=== PATIENT | female | born 1950 | race Caucasian/White ===

== ENCOUNTER 2021-06-30 12:26 | Inpatient (IN) | payer MEDICARE ==
--- NOTE | 2021-06-30 12:37 | ERPHSYRPT ---
- History of Present Illness Time Seen by Provider: 06/30/21 12:36 Source: patient Exam Limitations: no limitations Physician History: This is a 70-year-old white female patient who has paraplegia, peripheral neuropathy, diabetes, COPD, congestive heart failure and presents with several day history of worsening shortness of breath and cough. Patient usually seeks medical attention at [facility] in [facility]. However, she was unhappy with their care on 06/29/2021. She was found to have a moderate size right-sided pleural effusion and pulmonary infiltrates. She was sent home. Today, she has had worsening shortness of breath with a 92% oxygen saturation level on 2 L. Ambulance arrived and they were able to improve her saturation levels but needed to turn up her oxygen level to 4 L. Patient arrives via EMS. Timing/Duration: day(s) (Last couple days) Activities at Onset: none Severity of Dyspnea-Max: moderate Severity of Dyspnea-Current: moderate Possible Cause: occasional episodes Associated Symptoms: cough, weakness, No chest pain/discomfort Allergies/Adverse Reactions: latex Allergy (Verified 06/30/21 12:48) Home Medications: Duloxetine HCl [Cymbalta] 60 mg PO BID 08/17/16 [History] Gabapentin 800 mg PO QID 08/17/16 [History] Metformin HCl Xr 500 mg [Glucophage XR 500 MG] 500 mg PO BID 08/17/16 [History] Amitriptyline HCl 25 mg [Elavil 25 mg] 25 mg PO DAILY 06/30/21 [History] Diazepam 5 mg [Valium 5 MG] 5 mg PO DAILY 06/30/21 [History] Furosemide 20 mg [Lasix 20 mg] 40 mg PO DAILY 06/30/21 [History] Ipratropium/Albuterol Sulfate [Iprat-Albut 0.5-3(2.5) mg/3 ml] 3 ml IH Q4H 06/30/21 [History] Metoprolol Tartrate 25 mg [Lopressor 25MG Tab] 25 mg PO BID 06/30/21 [History] PANTOPRAZOLE 40 mg Tablet [Protonix 40MG Tablet] 40 mg PO QAM 06/30/21 [History] Hx Tetanus, Diphtheria Vaccination/Date Given: Yes Hx Influenza Vaccination/Date Given: No Hx Pneumococcal Vaccination/Date Given: No Travel Risk - International Travel Have you traveled outside of the country in past 3 weeks: No - Coronavirus Screening Are you exhibiting any of the following symptoms?: No Close contact with a COVID-19 positive Pt in past 14-21 Days: No - Review of Systems Constitutional: Weakness Eyes: No Symptoms Ears, Nose, & Throat: No Symptoms Respiratory: Cough, Dyspnea Cardiac: No Symptoms Abdominal/Gastrointestinal: No Symptoms Genitourinary Symptoms: No Symptoms Musculoskeletal: No Symptoms Skin: No Symptoms Neurological: No Symptoms Psychological: No Symptoms Endocrine: No Symptoms Hematologic/Lymphatic: No Symptoms Immunological/Allergic: No Symptoms All Other Systems: Reviewed and Negative - Past Medical History Pertinent Past Medical History: Yes Neurological History: Peripheral Neuropathy ENT History: No Pertinent History Cardiac History: High Cholesterol, Hypertension Respiratory History: Bronchitis Endocrine Medical History: Diabetes Type II Musculoskeletal History: No Pertinent History GI Medical History: No Pertinent History History: No Pertinent History Psycho-Social History: No Pertinent History Female Reproductive Disorders: No Pertinent History Other Medical History: 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 ostomy, bladder removal. pain pump d/t spine injury - Social History Smoking Status: Former smoker Exposure to second hand smoke: No Drug Use: none Patient Lives Alone: No - Nursing Vital Signs Nursing Vital Signs: Initial Vital Signs Temperature 95.3 F 06/30/21 12:31 Pulse Rate 99 H 06/30/21 12:31 Respiratory Rate 31 H 06/30/21 12:31 Blood Pressure 106/80 06/30/21 12:31 O2 Sat by Pulse Oximetry 99 06/30/21 12:31 Pain Scale Pain Intensity 6 - Physical Exam General Appearance: mild distress, alert, anxiety Eye Exam: PERRL/EOMI, eyes nml inspection Ears, Nose, Throat Exam: hearing grossly normal Neck Exam: normal inspection, non-tender, supple, full range of motion Respiratory Exam: respiratory distress, diminished breath sounds Cardiovascular/Chest Exam: normal heart sounds, regular rate/rhythm, normal peripheral pulses Abdominal/Gastrointestinal Exam: soft, normal bowel sounds, No tenderness Rectal Exam: not done Extremity Exam: pelvis stable, pedal edema Neurologic Exam: alert, oriented x 3, cooperative, oral and maxillofacial surgery resident II-XII nml as tested Skin Exam: normal color, warm, dry Lymphatic Exam: No adenopathy SpO2 Interpretation: normal O2 Delivery: Nasal Cannula - Course Nursing assessment & vital signs reviewed: Yes EKG Interpreted by Me: RATE (96), Sinus Rhythm, Left Gregory Deviation, NORMAL INTERVALS, NORMAL QRS, NORMAL ST-T, Other (There are no acute ischemic changes on today's EKG. There are no changes in today's EKG when compared to EKG dated 08/18/2016.) Ordered Tests: Active Orders 24 hr Category Date Time Status Principal Cloud Architect STAT Care 06/30/21 12:38 Active EKG-ER Only STAT Care 06/30/21 12:37 Active IV Insertion STAT Care 06/30/21 12:37 Active Pulse Oximetry (ED) STAT Care 06/30/21 12:37 Active CHEST 1 VIEW (PORTABLE) Stat Exams 06/30/21 12:59 Taken ARTERIAL BLOOD GASES Stat Lab 06/30/21 13:00 Completed BLOOD CULTURE Stat Lab 06/30/21 13:00 Received CBC W DIFF Stat Lab 06/30/21 12:55 Completed CMP Stat Lab 06/30/21 12:55 Completed INFLUENZA A+B EMELIA Stat Lab 06/30/21 12:55 Completed Lactic Acid Stat Lab 06/30/21 13:00 Completed MAGNESIUM Stat Lab 06/30/21 12:55 Completed NT PRO BNP Stat Lab 06/30/21 12:55 Completed TROPONIN Q3H Lab 06/30/21 12:55 Completed TROPONIN Q3H Lab 06/30/21 15:45 Received TROPONIN Q3H Lab 06/30/21 18:45 Ordered TROPONIN Q3H Lab 06/30/21 21:45 Ordered TROPONIN Q3H Lab 07/01/21 00:45 Ordered Transfer Order Routine Transfer 06/30/21 Ordered Lab/Rad Data: Laboratory Result Diagrams 06/30/21 12:55 06/30/21 12:55 Laboratory Results 06/30/21 06/30/21 06/30/21 Range/Units 13:00 12:55 12:55 WBC (4.0-10.5) K/mm3 RBC (4.1-5.4) M/mm3 Hgb (12.0-16.0) gm/dl Hct (35-47) % MCV (78-100) fl MCH (26-32) pg MCHC (32-36) g/dl RDW (11.5-14.0) % Plt Count (150-450) K/mm3 MPV (7.5-11.0) fl Gran % (36.0-66.0) % Eos # (Auto) (0-0.5) Absolute Lymphs (auto) (1.0-4.6) Absolute Monos (auto) (0.0-1.3) Lymphocytes % (24.0-44.0) % Monocytes % (0.0-12.0) % Eosinophils % (0.00-5.0) % Basophils % (0.0-0.4) % Absolute Granulocytes (1.4-6.9) Basophils # (0-0.4) Puncture Site LEFT BRACHIAL pCO2 67 H* (35-45) mmHg pO2 127 H* (75-100) mmHg Base Excess 8.8 H (-2.0-2.0) O2 Saturation 96.8 (94-100) g/dF ABG pH 7.35 (7.35-7.45) ABG HCO3 37.0 H* (22-28) ABG O2 Sat (Measured) 99.2 (95-100) % Eliecer Test NOT APPLICABLE A-a Gradient 46 a/A Ratio 0.73 Hemoglobin 11.9 Carboxyhemoglobin 1.7 (0.0-6.9) % THgb Methemoglobin 0.7 L (1.4-1.5) % Temperature 37.0 C POC O2 Flow Rate 36 % Sodium 137 (137-145) mmol/L Potassium 4.0 4.4 (3.5-5.1) mmol/L Chloride 94 L (98-107) mmol/L Carbon Dioxide 36 H (22-30) mmol/L Anion Gap 11.3 (5-15) MEQ/L BUN 22 H (7-17) mg/dL Creatinine 0.73 (0.52-1.04) mg/dL Estimated GFR > 60.0 ML/MIN Glucose 191 H (74-106) mg/dL Lactic Acid 0.5 (0.4-2.0) Calcium 9.2 (8.4-10.2) mg/dL Magnesium 2.1 (1.6-2.3) mg/dL Total Bilirubin 0.50 (0.2-1.3) mg/dL AST 21 (14-36) U/L ALT 24 (0-35) U/L Alkaline Phosphatase 163 H (38-126) U/L Troponin I < 0.012 (0.000-0.034) ng/mL NT-Pro-B Natriuret Pep 648 (0-900) pg/mL Serum Total Protein 7.6 (6.3-8.2) g/dL Albumin 3.9 (3.5-5.0) g/dL Influenza Type A Ag (NEGATIVE) Influenza Type B Ag (NEGATIVE) 06/30/21 06/30/21 Range/Units 12:55 12:55 WBC 13.8 H (4.0-10.5) K/mm3 RBC 4.22 (4.1-5.4) M/mm3 Hgb 11.9 L (12.0-16.0) gm/dl Hct 39.8 (35-47) % MCV 94.3 (78-100) fl MCH 28.2 (26-32) pg MCHC 29.9 L (32-36) g/dl RDW 14.6 H (11.5-14.0) % Plt Count 321 (150-450) K/mm3 MPV 11.2 H (7.5-11.0) fl Gran % 86.6 H (36.0-66.0) % Eos # (Auto) 0.07 (0-0.5) Absolute Lymphs (auto) 0.68 L (1.0-4.6) Absolute Monos (auto) 1.07 (0.0-1.3) Lymphocytes % 4.9 L (24.0-44.0) % Monocytes % 7.7 (0.0-12.0) % Eosinophils % 0.5 (0.00-5.0) % Basophils % 0.3 (0.0-0.4) % Absolute Granulocytes 11.97 H (1.4-6.9) Basophils # 0.04 (0-0.4) Puncture Site pCO2 (35-45) mmHg pO2 (75-100) mmHg Base Excess (-2.0-2.0) O2 Saturation (94-100) g/dF ABG pH (7.35-7.45) ABG HCO3 (22-28) ABG O2 Sat (Measured) (95-100) % Eliecer Test A-a Gradient a/A Ratio Hemoglobin Carboxyhemoglobin (0.0-6.9) % THgb Methemoglobin (1.4-1.5) % Temperature C POC O2 Flow Rate % Sodium (137-145) mmol/L Potassium (3.5-5.1) mmol/L Chloride (98-107) mmol/L Carbon Dioxide (22-30) mmol/L Anion Gap (5-15) MEQ/L BUN (7-17) mg/dL Creatinine (0.52-1.04) mg/dL Estimated GFR ML/MIN Glucose (74-106) mg/dL Lactic Acid (0.4-2.0) Calcium (8.4-10.2) mg/dL Magnesium (1.6-2.3) mg/dL Total Bilirubin (0.2-1.3) mg/dL AST (14-36) U/L ALT (0-35) U/L Alkaline Phosphatase (38-126) U/L Troponin I (0.000-0.034) ng/mL NT-Pro-B Natriuret Pep (0-900) pg/mL Serum Total Protein (6.3-8.2) g/dL Albumin (3.5-5.0) g/dL Influenza Type A Ag NEGATIVE (NEGATIVE) Influenza Type B Ag NEGATIVE (NEGATIVE) - Progress Progress: improved, re-examined Air Movement: fair Progress Note: 06/30/21 15:17 Chest x-ray shows cardiomegaly with left pleural effusion versus infiltrate. There is a small right pleural effusion present. 06/30/21 15:58 Medical decision making: This patient did not improve with outpatient therapy from prior evaluation at [facility] in [facility]. The patient has pleural effusions bilaterally left greater than right. She has infiltrates in her lung. She has leukocytosis as well. She is requiring greater amount of oxygen therapy than her baseline at home to keep her oxygen saturations above 92. Patient will benefit from placement in observation. I spoke with Dr. Minaya and she agrees. We will place her in observation on a monitored bed. Blood Culture(s) Obtained: Yes Antibiotics given: Yes Counseled pt/family regarding: lab results, diagnosis, need for follow-up, rad results - Departure Departure Disposition: Observation Clinical Impression: Pleural effusion, Pulmonary infiltrate, Leukocytosis Condition: Fair Critical Care Time: No Referrals: RAINER SHEPHERD MD [Primary Care Provider] -
[2021-06-30 13:06] LABS: A-aADO2 46; ABG HEMOGLOBIN 11.9; ARTERIAL BLD GAS O2 SATURATION 99.2 % (95-100); ARTERIAL BLOOD GAS BASE EXCESS 8.8 (-2.0-2.0); ARTERIAL BLOOD GAS FIO2 36 %; ARTERIAL BLOOD GAS PCO2 67 mmHg (35-45); ARTERIAL BLOOD GAS PO2 127 mmHg (75-100); ARTERIAL BLOOD GAS pH 7.35 (7.35-7.45); CARBOXYHEMOGLOBIN 1.7 % THgb (0.0-6.9); HGB O2 SAT 96.8 g/dF (94-100); Lactic Acid 0.5 (0.4-2.0); Methhemoglobin 0.7 % (1.4-1.5)
[2021-06-30 13:07] LABS: ABG SITE LEFT BRACHIAL
[2021-06-30 13:15] LABS: Absolute Neutrophil Ct (ANC) 11.97 (1.4-6.9); BASOPHIL % 0.3 % (0.0-0.4); Basophil (Absolute #) 0.04 (0-0.4); Eosinophil % 0.5 % (0.00-5.0); Eosinophil (Absolute #) 0.07 (0-0.5); Hematocrit 39.8 % (35-47); Hemoglobin 11.9 gm/dl (12.0-16.0); Lymphocyte (Absolute #) 0.68 (1.0-4.6); Lymphocytes % 4.9 % (24.0-44.0); Mean Cell Volume 94.3 fl (78-100); Mean Corpuscular Hemoglobin 28.2 pg (26-32); Mean Corpuscular Hgb Concent. 29.9 g/dl (32-36); Mean Platelet Volume 11.2 fl (7.5-11.0); Monocyte (Absolute #) 1.07 (0.0-1.3); Monocytes % 7.7 % (0.0-12.0); Neutrophil % 86.6 % (36.0-66.0); Platelet Count 321 K/mm3 (150-450); Red Blood Count 4.22 M/mm3 (4.1-5.4); Red Cell Distribution Width 14.6 % (11.5-14.0); White Blood Count 13.8 K/mm3 (4.0-10.5)
[2021-06-30 13:36] LABS: ALBUMIN 3.9 g/dL (3.5-5.0); ALKALINE PHOSPHATASE 163 U/L (38-126); ANION GAP 11.3 MEQ/L (5-15); BLOOD UREA NITROGEN 22 mg/dL (7-17); CHLORIDE 94 mmol/L (98-107); Calcium 9.2 mg/dL (8.4-10.2); Carbon Dioxide 36 mmol/L (22-30); Creatinine 1 0.73 mg/dL (0.52-1.04); EST GLOMERULAR FILTRATION RATE > 60.0 ML/MIN; Glucose 191 mg/dL (74-106); MAGNESIUM 2.1 mg/dL (1.6-2.3); NT PRO BNP 648 pg/mL (0-900); Potassium 4.4 mmol/L (3.5-5.1); SGOT/AST 21 U/L (14-36); SGPT/ALT 24 U/L (0-35); SODIUM 137 mmol/L (137-145); Total Protein 7.6 g/dL (6.3-8.2)
[2021-06-30 13:40] LABS: INFLUENZA A NEGATIVE (NEGATIVE); INFLUENZA B NEGATIVE (NEGATIVE)
[2021-06-30] MEDS ORDERED: Zofran 4 MG/2 ML VIAL IV PRN (17:48)
[2021-06-30] MEDS ORDERED: Sterile H2O 10 ml IJ ONE (18:40)
[2021-06-30] MEDS ORDERED: Zithromax 500 MG/ 250 ML NaCl Premix 500 MG/250 ML IVPB IV ONE (18:40)
[2021-06-30] MEDS ORDERED: ROCEPHIN 1 Gm-D5w 50 ml Bag** 1 G/50 ML IVPB IV ONE (18:40)
[2021-06-30] MEDS: solu-MEDROL 40 MG IV SCH (18:43)
[2021-06-30] MEDS: Lasix 40 MG/4 ML IV SCH (18:44)
[2021-06-30] MEDS ORDERED: DUONEB 0.5-3 MG/3 ml Neb IH SCH (19:00)
[2021-06-30] MEDS ORDERED: Valium 5 MG PO PRN (19:43)
[2021-06-30] MEDS: TYLENOL 325 MG PO PRN (20:31)
[2021-06-30] MEDS: DUONEB 0.5-3 MG/3 ml Neb IH SCH (20:54)
--- NOTE | 2021-06-30 21:07 | XRAY ---
Indication: Cough. Short of breath. Comparison: August 17, 2016. Portable chest demonstrates new moderate left effusion/atelectasis and new minimal right base infiltrate/atelectasis with worsening cardiomegaly. Bony thorax intact again with mild degenerative changes, cervical thoracic fusion hardware, old right rib fractures, and old left clavicle fracture.
[2021-06-30] MEDS: Cymbalta 30 MG Capsule PO SCH (21:23)
[2021-06-30] MEDS: ELAVIL 25 MG PO SCH (21:24)
[2021-06-30] MEDS ORDERED: Lopressor 25MG Tab PO SCH (22:00)
[2021-06-30] MEDS ORDERED: Neurontin 400 MG PO SCH (22:00)
[2021-07-01] MEDS: DUONEB 0.5-3 MG/3 ml Neb IH SCH ×7 (00:35→18:58)
[2021-07-01 01:48] LABS: Absolute Neutrophil Ct (ANC) 11.95 (1.4-6.9); BASOPHIL % 0.2 % (0.0-0.4); Basophil (Absolute #) 0.02 (0-0.4); Eosinophil % 0.1 % (0.00-5.0); Eosinophil (Absolute #) 0.01 (0-0.5); Hematocrit 39.1 % (35-47); Hemoglobin 11.5 gm/dl (12.0-16.0); Lymphocyte (Absolute #) 0.53 (1.0-4.6); Lymphocytes % 4.1 % (24.0-44.0); Mean Cell Volume 94.2 fl (78-100); Mean Corpuscular Hemoglobin 27.7 pg (26-32); Mean Corpuscular Hgb Concent. 29.4 g/dl (32-36); Mean Platelet Volume 11.4 fl (7.5-11.0); Monocyte (Absolute #) 0.27 (0.0-1.3); Monocytes % 2.1 % (0.0-12.0); Neutrophil % 93.5 % (36.0-66.0); Platelet Count 313 K/mm3 (150-450); Red Blood Count 4.15 M/mm3 (4.1-5.4); Red Cell Distribution Width 14.6 % (11.5-14.0); White Blood Count 12.8 K/mm3 (4.0-10.5)
[2021-07-01 02:25] LABS: ALBUMIN 3.4 g/dL (3.5-5.0); ALKALINE PHOSPHATASE 176 U/L (38-126); ANION GAP 13.4 MEQ/L (5-15); BLOOD UREA NITROGEN 27 mg/dL (7-17); CHLORIDE 95 mmol/L (98-107); Carbon Dioxide 34 mmol/L (22-30); Creatinine 1 0.63 mg/dL (0.52-1.04); EST GLOMERULAR FILTRATION RATE > 60.0 ML/MIN; Glucose 270 mg/dL (74-106); NT PRO BNP 785 pg/mL (0-900); Potassium 4.2 mmol/L (3.5-5.1); SGOT/AST 19 U/L (14-36); SGPT/ALT 21 U/L (0-35); SODIUM 138 mmol/L (137-145); Total Protein 6.8 g/dL (6.3-8.2)
[2021-07-01] MEDS: TYLENOL 325 MG PO PRN ×2 (03:04→19:49)
[2021-07-01] MEDS ORDERED: Lasix 40 MG/4 ML ONE (06:10)
[2021-07-01] MEDS ORDERED: solu-MEDROL 40 MG ONE (06:10)
[2021-07-01] MEDS ORDERED: Sterile H2O 10 ml IJ ONE ×2 (06:10→17:26)
[2021-07-01] MEDS: Lasix 40 MG/4 ML IV SCH ×2 (06:13→17:27)
[2021-07-01] MEDS: solu-MEDROL 40 MG IV SCH ×2 (06:13→17:27)
[2021-07-01] MEDS ORDERED: Valium 5 MG PO PRN (07:26)
[2021-07-01] MEDS: HUMULIN R SQ PRN ×4 (08:57→21:05)
[2021-07-01] MEDS: Lopressor 25MG Tab PO SCH ×2 (09:17→21:03)
[2021-07-01] MEDS: Cymbalta 30 MG Capsule PO SCH ×2 (09:17→21:03)
[2021-07-01] MEDS: Protonix 40MG Tablet PO SCH (09:17)
[2021-07-01] MEDS: Neurontin 400 MG PO SCH ×4 (09:17→21:05)
--- NOTE | 2021-07-01 09:34 | PCM.HP ---
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 Active IV Insertion STAT Care 06/30/21 12:[address] in Observation ROUTINE Care 06/30/21 17:48 Active Pulse Oximetry (ED) STAT Care 06/30/21 12:37 Completed Telemetry Q6H Care 06/30/21 17:48 Active Weight,Daily 0600 Care 06/30/21 17:48 Active Consistent Carbohydrate Diet 2000 Calorie Diet 06/30/21 Dinner Active CHEST 1 VIEW (PORTABLE) Stat Exams 06/30/21 12:59 Completed ARTERIAL BLOOD GASES Stat Lab 06/30/21 13:00 Completed BLOOD CULTURE Stat Lab 06/30/21 13:00 Received CBC W DIFF AM.LAB Lab 07/01/21 01:17 Completed CBC W DIFF Stat Lab 06/30/21 12:55 Completed CMP AM.LAB Lab 07/01/21 01:17 Completed CMP Stat Lab 06/30/21 12:55 Completed HEMOGLOBIN A1C Urgent Lab 06/30/21 12:55 Completed INFLUENZA A+B EMELIA Stat Lab 06/30/21 12:55 Completed Lactic Acid Stat Lab 06/30/21 13:00 Completed MAGNESIUM Stat Lab 06/30/21 12:55 Completed NT PRO BNP AM.LAB Lab 07/01/21 01:17 Completed NT PRO BNP Stat Lab 06/30/21 12:55 Completed POCT GLUCOSE Stat Lab 07/01/21 06:29 Completed TROPONIN Q3H Lab 06/30/21 12:55 Completed TROPONIN Q3H Lab 06/30/21 15:45 Completed TROPONIN Q3H Lab 06/30/21 19:00 Completed TROPONIN Q3H Lab 06/30/21 21:43 Completed TROPONIN Q3H Lab 07/01/21 01:17 Completed Acetaminophen 325 mg [Tylenol 325 mg] Med 06/30/21 17:48 Active 650 mg PO Q4H PRN PRN Albuterol/Ipratropium 3ml Neb* [DUONEB 0.5-3 MG/3 ml Med 06/30/21 18:31 Discontinued Neb] 3 ml IH Q4H Albuterol/Ipratropium 3ml Neb* [DUONEB 0.5-3 MG/3 ml Med 07/01/21 08:00 Active Neb] 3 ml IH Q4HRT Albuterol/Ipratropium 3ml Neb* [DUONEB 0.5-3 MG/3 ml Med 06/30/21 19:00 Discontinued Neb] 3 ml IH QIDRT Amitriptyline HCl 25 mg [Elavil 25 mg] Med 06/30/21 22:00 Active 25 mg PO HS Amitriptyline HCl 25 mg [Elavil 25 mg] Med 07/01/21 22:00 Discontinued 25 mg PO HS Azithromycin 500 mg/250 ml [Zithromax 500 MG/ 250 ML Med 07/01/21 22:00 Active NaCl Premix] 500 mg in 250 ml IV 2200 Azithromycin 500 mg/250 ml [Zithromax 500 MG/ 250 ML Med 07/01/21 10:00 Discontinued NaCl Premix] 500 mg in 250 ml IV Q24H10 Azithromycin 500 mg/250 ml [Zithromax 500 MG/ 250 ML Med 06/30/21 18:40 Discontinued NaCl Premix] 500 mg in 250 ml IV UD Ceftriaxone 1 GM/50 ML PREMIX* [ROCEPHIN 1 Gm-D5w 50 ml Med 07/01/21 22:00 Active Bag] 1 g in 50 ml IV 2200 Ceftriaxone 1 GM/50 ML PREMIX* [ROCEPHIN 1 Gm-D5w 50 ml Med 06/30/21 18:40 Discontinued Bag] 1 g in 50 ml IV UD Diazepam 5 mg [Valium 5 MG] Med 07/01/21 07:26 Active 5 mg PO DAILY PRN PRN Diazepam 5 mg [Valium 5 MG] Med 06/30/21 19:43 Discontinued 5 mg PO PRN PRN Duloxetine HCl 30 mg [Cymbalta 30 MG Capsule] Med 06/30/21 22:00 Active 60 mg PO BID Duloxetine HCl 30 mg [Cymbalta 30 MG Capsule] Med 07/01/21 10:00 Discontinued 60 mg PO BID Furosemide 40 mg/4 ml [Lasix 40 MG/4 ML] Med 07/01/21 06:10 Discontinued 40 mg .ROUTE .STK-MED ONE Furosemide 40 mg/4 ml [Lasix 40 MG/4 ML] Med 06/30/21 17:48 Active 40 mg IV Q12H Gabapentin 400 mg [Neurontin 400 MG] Med 06/30/21 22:00 Discontinued 800 mg PO QID Gabapentin 400 mg [Neurontin 400 MG] Med 07/01/21 10:00 Active 800 mg PO QID Insulin Regular, Human [Humulin R] Med 06/30/21 17:48 Active See Dose Instructions SQ UD PRN Methylprednisolone Sod Suc 40M [solu-MEDROL 40 MG] Med 07/01/21 06:10 Discontinued 40 mg .ROUTE .STK-MED ONE Methylprednisolone Sod Suc 40M [solu-MEDROL 40 MG] Med 06/30/21 17:48 Active 40 mg IV Q12H Metoprolol Tartrate 25 mg [Lopressor 25MG Tab] Med 06/30/21 22:00 Disco ntinued 25 mg PO BID Metoprolol Tartrate 25 mg [Lopressor 25MG Tab] Med 07/01/21 10:00 Active 25 mg PO BID Ondansetron HCl 4 mg/2 ml [Zofran 4 MG/2 ML VIAL] Med 06/30/21 17:48 Active 4 mg IV Q6H PRN PRN PANTOPRAZOLE 40 mg Tablet [Protonix 40MG Tablet] Med 07/01/21 10:00 Active 40 mg PO QAM PANTOPRAZOLE 40 mg Tablet [Protonix 40MG Tablet] Med 07/01/21 10:00 Discontinued 40 mg PO QAM Water For Injection,Sterile [Sterile H2O 10 ml] Med 06/30/21 18:40 Discontinued 10 ml IJ .STK-MED ONE Water For Injection,Sterile [Sterile H2O 10 ml] Med 07/01/21 06:10 Discontinued 10 ml IJ .STK-MED ONE Oxygen Nasal Cannula 4 lpm RT 06/30/21 17:48 Active Pulse Oximetry .continuos RT 06/30/21 18:23 Active Respiratory Therapy Assessment DAILY RT 06/30/21 18:23 Active Respiratory Therapy Consult ROUTINE RT 06/30/21 17:48 Completed Patient Care Notes (Last 24 hours) 07/01/21 03:06 Nursing Note by Debra Javier Pt c/o headache 04/04 requesting tylenol, tylenol given per order. SR up x 3 call light with in reach. Initialized on 07/01/21 03:06 - END OF NOTE Code(s): J20.9 - ACUTE BRONCHITIS, UNSPECIFIED; J42 - UNSPECIFIED CHRONIC BRONCHITIS (2) Leukocytosis Current Visit: Yes Status: Acute Qualifiers: Leukocytosis type: bandemia Qualified Code(s): D72.825 - Bandemia Code(s): D72.829 - ELEVATED WHITE BLOOD CELL COUNT, UNSPECIFIED (3) Pleural effusion Current Visit: Yes Status: Acute Code(s): J90 - PLEURAL EFFUSION, NOT ELSEWHERE CLASSIFIED (4) Pulmonary infiltrate Current Visit: Yes Status: Acute Code(s): R91.8 - OTHER NONSPECIFIC ABNORMAL FINDING OF LUNG FIELD (5) Sepsis Current Visit: No Status: Acute
[2021-07-01] MEDS ORDERED: Zithromax 500 MG/ 250 ML NaCl Premix 500 MG/250 ML IVPB IV SCH (10:00)
[2021-07-01] MEDS ORDERED: NON-FORMULARY ITEM (Duloxetine Hcl [Cymbalta] 60 MG) PO SCH (10:00)
[2021-07-01] MEDS ORDERED: NON-FORMULARY ITEM (Gabapentin [Gabapentin] 800 MG) PO SCH (10:00)
[2021-07-01] MEDS ORDERED: Protonix 40MG Tablet PO SCH (10:00)
[2021-07-01] MEDS ORDERED: Cymbalta 30 MG Capsule PO SCH (10:00)
[2021-07-01] MEDS: ROCEPHIN 1 Gm-D5w 50 ml Bag** 1 G/50 ML IVPB IV SCH (21:00)
[2021-07-01] MEDS: ELAVIL 25 MG PO SCH (21:05)
[2021-07-01] MEDS: Zithromax 500 MG/ 250 ML NaCl Premix 500 MG/250 ML IVPB IV SCH (21:31)
[2021-07-01] MEDS ORDERED: ELAVIL 25 MG PO SCH (22:00)
[2021-07-02] MEDS: DUONEB 0.5-3 MG/3 ml Neb IH SCH ×6 (04:51→22:34)
[2021-07-02 05:37] LABS: Hematocrit 36.6 % (35-47); Hemoglobin 10.5 gm/dl (12.0-16.0); Mean Cell Volume 95.1 fl (78-100); Mean Corpuscular Hemoglobin 27.3 pg (26-32); Mean Corpuscular Hgb Concent. 28.7 g/dl (32-36); Mean Platelet Volume 11.4 fl (7.5-11.0); Platelet Count 336 K/mm3 (150-450); Red Blood Count 3.85 M/mm3 (4.1-5.4); Red Cell Distribution Width 14.5 % (11.5-14.0); White Blood Count 9.4 K/mm3 (4.0-10.5)
[2021-07-02] MEDS ORDERED: Sterile H2O 10 ml IJ ONE ×2 (05:51→20:43)
[2021-07-02] MEDS: Lasix 40 MG/4 ML IV SCH ×2 (05:54→17:21)
[2021-07-02] MEDS: solu-MEDROL 40 MG IV SCH ×2 (05:55→21:41)
[2021-07-02 05:57] LABS: ALBUMIN 3.6 g/dL (3.5-5.0); ALKALINE PHOSPHATASE 151 U/L (38-126); ANION GAP 9.4 MEQ/L (5-15); BLOOD UREA NITROGEN 35 mg/dL (7-17); CHLORIDE 95 mmol/L (98-107); Calcium 9.1 mg/dL (8.4-10.2); Carbon Dioxide 38 mmol/L (22-30); Creatinine 1 0.78 mg/dL (0.52-1.04); EST GLOMERULAR FILTRATION RATE > 60.0 ML/MIN; Glucose 253 mg/dL (74-106); Potassium 4.3 mmol/L (3.5-5.1); SGOT/AST 20 U/L (14-36); SGPT/ALT 23 U/L (0-35); SODIUM 139 mmol/L (137-145); Total Protein 7.2 g/dL (6.3-8.2)
[2021-07-02 07:28] LABS: Slide Review YES
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
[2021-07-02] MEDS: Neurontin 400 MG PO SCH ×4 (09:05→21:40)
[2021-07-02] MEDS: HUMULIN R SQ PRN ×2 (09:05→21:50)
[2021-07-02] MEDS: Protonix 40MG Tablet PO SCH (09:05)
[2021-07-02] MEDS: Lopressor 25MG Tab PO SCH ×2 (09:05→21:40)
[2021-07-02] MEDS: Cymbalta 30 MG Capsule PO SCH ×2 (09:05→21:40)
[2021-07-02] MEDS: TYLENOL 325 MG PO PRN (13:52)
[2021-07-02] MEDS: ELAVIL 25 MG PO SCH (21:40)
[2021-07-02] MEDS: ROCEPHIN 1 Gm-D5w 50 ml Bag** 1 G/50 ML IVPB IV SCH (21:41)
[2021-07-02] MEDS: Zithromax 500 MG/ 250 ML NaCl Premix 500 MG/250 ML IVPB IV SCH (22:19)
[2021-07-03 02:49] LABS: Appearance SLIGHTLY CLOUDY (CLEAR); Bacteria MODERATE /HPF (NEGATIVE); Bilirubin NEGATIVE (NEGATIVE); Blood NEGATIVE Ery/ul (0-5); Budding Yeast Many /HPF (NEGATIVE); Glucose NEGATIVE (NEGATIVE); Ketones NEGATIVE (NEGATIVE); Leukocyte Esterase NEGATIVE (NEGATIVE); Mucus SLIGHT /HPF (NEGATIVE); Nitrite NEGATIVE (NEGATIVE); Protein,Urine Dip NEGATIVE (Negative); Specific Gravity 1.011 (1.005-1.025); Urobilinogen NEGATIVE mg/dL (0-1)
[2021-07-03] MEDS: DUONEB 0.5-3 MG/3 ml Neb IH SCH ×6 (03:00→21:45)
[2021-07-03] MEDS: Lasix 40 MG/4 ML IV SCH ×2 (05:27→17:41)
[2021-07-03 07:38] LABS: Hematocrit 37.8 % (35-47); Mean Corpuscular Hemoglobin 27.4 pg (26-32); Mean Corpuscular Hgb Concent. 29.1 g/dl (32-36); Mean Platelet Volume 10.8 fl (7.5-11.0); Platelet Count 348 K/mm3 (150-450); Red Blood Count 4.02 M/mm3 (4.1-5.4); Red Cell Distribution Width 14.6 % (11.5-14.0)
[2021-07-03 08:20] LABS: BLOOD UREA NITROGEN 37 mg/dL (7-17); CHLORIDE 91 mmol/L (98-107); Creatinine 1 0.72 mg/dL (0.52-1.04); EST GLOMERULAR FILTRATION RATE > 60.0 ML/MIN; Glucose 311 mg/dL (74-106); Potassium 4.5 mmol/L (3.5-5.1); SODIUM 138 mmol/L (137-145)
[2021-07-03 08:30] LABS: Carbon Dioxide 38 mmol/L (22-30)
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
[2021-07-03 09:11] LABS: ANION GAP 13.5 MEQ/L (5-15)
[2021-07-03] MEDS: Lopressor 25MG Tab PO SCH ×2 (09:34→22:14)
[2021-07-03] MEDS: Neurontin 400 MG PO SCH ×4 (09:34→22:12)
[2021-07-03] MEDS: Protonix 40MG Tablet PO SCH (09:34)
[2021-07-03] MEDS: Cymbalta 30 MG Capsule PO SCH ×2 (09:34→22:13)
[2021-07-03] MEDS: solu-MEDROL 40 MG IV SCH ×2 (09:34→22:09)
[2021-07-03] MEDS: Sterile H2O 10 ml IJ SCH ×2 (09:35→22:09)
[2021-07-03] MEDS: HUMULIN R SQ PRN ×4 (09:47→22:07)
--- NOTE | 2021-07-03 11:56 | XRAY ---
Indication: Pleural effusion, pneumonia, and congestion. Comparison: July 03, 2021. Portable chest demonstrates slight increasing large left effusion/atelectasis and new moderate right base infiltrate/atelectasis/effusion. Heart remains enlarged. Remaining chest unchanged.
[2021-07-03] MEDS: TYLENOL 325 MG PO PRN (12:16)
[2021-07-03] MEDS: Zithromax 500 MG/ 250 ML NaCl Premix 500 MG/250 ML IVPB IV SCH (22:11)
[2021-07-03] MEDS: ROCEPHIN 1 Gm-D5w 50 ml Bag** 1 G/50 ML IVPB IV SCH (22:12)
[2021-07-03] MEDS: ELAVIL 25 MG PO SCH (22:14)
[2021-07-04] MEDS: Lasix 40 MG/4 ML IV SCH (06:07)
[2021-07-04] MEDS: DUONEB 0.5-3 MG/3 ml Neb IH SCH ×3 (06:26→15:50)
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
[2021-07-04] MEDS: solu-MEDROL 40 MG IV SCH (09:45)
[2021-07-04] MEDS: HUMULIN R SQ PRN ×2 (09:45→12:00)
[2021-07-04] MEDS: Cymbalta 30 MG Capsule PO SCH (09:45)
[2021-07-04] MEDS: Lopressor 25MG Tab PO SCH (09:45)
[2021-07-04] MEDS: Neurontin 400 MG PO SCH ×2 (09:45→14:45)
[2021-07-04] MEDS: Protonix 40MG Tablet PO SCH (09:45)
[2021-07-04] MEDS: Sterile H2O 10 ml IJ SCH (10:41)
--- NOTE | 2021-07-04 12:53 | PROG NOTE ---
DATE: 07/04/2021 Events noted. Chart reviewed. HISTORY: The patient is awake, comfortable in chair, voices no new complaints. Shortness of breath is a bit better. PHYSICAL EXAMINATION: Vital signs noted. HEENT: Normocephalic. Oral exam unremarkable. CVS: First and second heart sounds are normal, regular, rhythmic. RESPIRATORY: Shows diminished breath sounds at the left lung base. ABDOMEN: Soft. EXTREMITIES: Trace edema is noted. LABORATORY DATA AND TESTS: Labs reviewed. ASSESSMENT: This is a 70 year old woman admitted with: 1) Recurrent bilateral pleural effusions left significantly larger than right causing atelectasis and dyspnea having undergone thoracentesis recently. However the fluid appears to have recurred and needs a definitive procedure to not only ascertain the etiology but also symptomatically help the patient. 2) Chronic paraplegia. RECOMMENDATIONS: I have discussed the case with Dr. Castro at [facility]. He is in agreement that the patient will benefit from video-assisted thorascopic surgery (VATS) with pleurodesis and has tentatively placed the patient on schedule for 07/05/2021. We both also discussed with administrative team at [facility] and they have assured that they will accept her as transfer by this afternoon/evening to [facility]. In the meantime, we will continue present therapy. I have discussed these recommendations with the patient and she is in agreement.
[2021-07-04 16:17] VITALS: BP 181/77; PULSE 74; O2SAT 89
== END 2021-07-04 16:28 | disposition short-term general hospital (02) | DRG 187 ==
LOC: ED 12:26 → MED SURG 17:42 → OBSVTOIN 07-01 09:30
PROVIDERS: ADMIT Family Medicine; ATTEND Family Medicine
DX: J90 Pleural effusion, not elsewhere classified (principal); J44.1 Chronic obstructive pulmonary disease with (acute) exacerbation; G82.21 Paraplegia, complete; E11.9 Type 2 diabetes mellitus without complications; R53.1 Weakness; I50.9 Heart failure, unspecified; Z79.899 Other long term (current) drug therapy; D72.829 Elevated white blood cell count, unspecified; R09.02 Hypoxemia; Z99.81 Dependence on supplemental oxygen; G62.9 Polyneuropathy, unspecified; I10 Essential (primary) hypertension; E78.00 Pure hypercholesterolemia, unspecified; R91.8 Other nonspecific abnormal finding of lung field; Z20.822 Contact with and (suspected) exposure to COVID-19
CPT/HCPCS: 36000; 36415; 36600; 71045; 80048; 80053; 81001; 82375; 82803; 82947; 83036; 83605; 83735; 83880; 84484; 85025; 85027; 87040; 87077; 87086; 87186; 87400; 93005; 93041; 93268; 94640; 94760; 94762; 97161; 97165; 99284; G0378; U0003; J0456; J0696; J1815; J1940; J2920; A9270-GY

== ENCOUNTER 2021-10-10 12:35 | Emergency (ER) | payer MEDICARE ==
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
[2021-10-10] MEDS ORDERED: Zofran 4 MG/2 ML VIAL IV ONE (13:05)
[2021-10-10] MEDS ORDERED: DECADRON 10MG INJ. IV ONE (13:07)
[2021-10-10] MEDS ORDERED: Sodium Chloride 0.9% 1000 ML 1,000 ML IV SCH (13:15)
--- NOTE | 2021-10-10 13:44 | XRAY ---
Indication: Fever and cough. Comparison: July 03, 2021. Portable chest demonstrates moderate clearing of previous bilateral pleural effusions/atelectasis with small residual in both lung bases. Heart remains enlarged. Bony thorax intact again with osteopenia, degenerative changes, and cervical thoracic spinal fusion hardware.
[2021-10-10 13:49] LABS: ALBUMIN 3.6 g/dL (3.5-5.0); ALKALINE PHOSPHATASE 121 U/L (38-126); ANION GAP 11.7 MEQ/L (5-15); BLOOD UREA NITROGEN 13 mg/dL (7-17); CHLORIDE 99 mmol/L (98-107); Calcium 8.5 mg/dL (8.4-10.2); Carbon Dioxide 29 mmol/L (22-30); Creatinine 1 0.57 mg/dL (0.52-1.04); EST GLOMERULAR FILTRATION RATE > 60.0 ML/MIN; Glucose 166 mg/dL (74-106); LDH-LACTATE DEHYDROGENASE 111 U/L (120-246); Potassium 3.7 mmol/L (3.5-5.1); SGOT/AST 15 U/L (14-36); SGPT/ALT 13 U/L (0-35); SODIUM 136 mmol/L (137-145)
[2021-10-10] MEDS ORDERED: DECADRON 10MG INJ. ONE (13:51)
[2021-10-10] MEDS ORDERED: Zofran 4 MG/2 ML VIAL ONE (13:51)
[2021-10-10 13:52] LABS: Absolute Neutrophil Ct (ANC) 5.96 (1.4-6.9); BASOPHIL % 0.4 % (0.0-0.4); Basophil (Absolute #) 0.04 (0-0.4); Eosinophil % 2.5 % (0.00-5.0); Eosinophil (Absolute #) 0.22 (0-0.5); Hematocrit 35.7 % (35-47); Hemoglobin 10.8 gm/dl (12.0-16.0); Lymphocyte (Absolute #) 1.86 (1.0-4.6); Lymphocytes % 20.9 % (24.0-44.0); Mean Cell Volume 84.8 fl (78-100); Mean Corpuscular Hemoglobin 25.7 pg (26-32); Mean Corpuscular Hgb Concent. 30.3 g/dl (32-36); Mean Platelet Volume 10.9 fl (7.5-11.0); Monocyte (Absolute #) 0.83 (0.0-1.3); Monocytes % 9.3 % (0.0-12.0); Neutrophil % 66.9 % (36.0-66.0); Platelet Count 312 K/mm3 (150-450); Red Blood Count 4.21 M/mm3 (4.1-5.4); Red Cell Distribution Width 15.9 % (11.5-14.0); White Blood Count 8.9 K/mm3 (4.0-10.5)
[2021-10-10] MEDS ORDERED: Sodium Chloride 0.9% 1000 ML 1,000 ML ONE (13:52)
[2021-10-10 14:07] LABS: INFLUENZA A NEGATIVE (NEGATIVE); INFLUENZA B NEGATIVE (NEGATIVE)
[2021-10-10 14:40] LABS: Appearance SLIGHTLY CLOUDY (CLEAR); Bacteria FEW /HPF (NEGATIVE); Bilirubin NEGATIVE (NEGATIVE); Blood NEGATIVE Ery/ul (0-5); Glucose NEGATIVE (NEGATIVE); Ketones NEGATIVE (NEGATIVE); Leukocyte Esterase TRACE (NEGATIVE); Mucus SLIGHT /HPF (NEGATIVE); Nitrite NEGATIVE (NEGATIVE); Protein,Urine Dip NEGATIVE (Negative); RBC 0-2 /HPF (0-2); Specific Gravity 1.009 (1.005-1.025); Urobilinogen NEGATIVE mg/dL (0-1)
--- NOTE | 2021-10-10 15:32 | XRAY ---
Indication: Chest tightness. Elevated d-dimer. Multiple contiguous axial images obtained through the chest using 80 cc Isovue 370 contrast and PE protocol. Comparison: None Good opacification of the pulmonary arteries. Multilevel bilateral posterior thoracic spinal fusion hardware produces extreme beam artifact limiting evaluation for pulmonary embolus and remaining cardiopulmonary structures. No obvious pulmonary embolus. Heart is enlarged with small pericardial effusion/thickening. Aorta is minimally arteriosclerotic without aneurysm/dissection. No pathologic mediastinal/hilar lymphadenopathy. Lungs demonstrates moderate right and small left pleural effusions with mild bilateral lower lobe compressive atelectasis. Upper lungs demonstrates scattered subsegmental atelectasis/scarring and right upper lungs subpleural cystic changes. Remaining bony thorax demonstrates osteopenia, mild/moderate degenerative changes throughout the spine, advanced left/mild right shoulder degenerative arthropathy, and multiple old right posterior rib fractures. Limited upper abdomen demonstrates a 1.5 cm noncalcified right adrenal gland mass, possible adenoma. Impression: 1. Pulmonary embolus evaluation limited due to extreme beam artifact from spinal fusion hardware. No obvious pulmonary embolus. 2. Cardiomegaly with small pericardial effusion/thickening and bilateral pleural effusions/atelectasis. Rule out cardiac decompensation/CHF. 3. Right adrenal gland mass possible adenoma and chronic bony findings.
[2021-10-10] MEDS ORDERED: Lasix 40 MG/4 ML IV ONE (15:38)
[2021-10-10] MEDS ORDERED: Lasix 40 MG/4 ML ONE (15:52)
[2021-10-10 18:11] VITALS: O2SAT 95
[2021-10-10 18:12] VITALS: BP 147/67; PULSE 89
== END 2021-10-10 19:00 | disposition home or self-care (01) ==
LOC: ED 12:35
DX: J06.9 Acute upper respiratory infection, unspecified (principal); R09.81 Nasal congestion; G82.20 Paraplegia, unspecified; T14.8XXS Other injury of unspecified body region, sequela; Z99.3 Dependence on wheelchair; E78.5 Hyperlipidemia, unspecified; E11.8 Type 2 diabetes mellitus with unspecified complications; Z79.84 Long term (current) use of oral hypoglycemic drugs; J44.9 Chronic obstructive pulmonary disease, unspecified; Z99.81 Dependence on supplemental oxygen; I11.0 Hypertensive heart disease with heart failure; I50.9 Heart failure, unspecified
CPT/HCPCS: 36000; 36415; 71045; 71260; 80053; 81001; 82728; 83605; 83615; 83880; 84484; 85025; 85379; 86308; 87040; 87400; 87651; 93005; 94760; 96374; 96375; 99284; U0003; J1100; J1940; J2405

== ENCOUNTER 2023-04-09 21:33 | Inpatient (IN) | payer MEDICARE ==
[2023-04-09] MEDS ORDERED: solu-MEDROL 125 MG, Sterile H2O 10 ml 2 ML IV ONE ×2 (21:39)
[2023-04-09] MEDS ORDERED: DUONEB 0.5-3 MG/3 ml Neb IH ONE ×2 (21:39→21:54)
[2023-04-09] MEDS ORDERED: solu-MEDROL ONE (21:53)
[2023-04-09] MEDS ORDERED: Sterile H2O 10 ml IJ ONE (21:53)
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
[2023-04-09 22:25] LABS: Absolute Neutrophil Ct (ANC) 5.71 x10^3/uL (1.4-6.9); BASOPHIL % 0.4 % (0.0-0.4); Basophil (Absolute #) 0.03 x10^3/uL (0-0.4); Eosinophil (Absolute #) 0 x10^3/uL (0-0.5); Hemoglobin 14.6 g/dL (12.0-16.0); IMMATURE GRAN # 0.04 x10^3u/L (0.00-0.03); IMMATURE GRAN % 0.6 % (0.00-0.4); Lymphocyte (Absolute #) 1.13 x10^3/uL (1.0-4.6); Lymphocytes % 15.7 % (24.0-44.0); Mean Cell Volume 89.2 fL (78-100); Mean Corpuscular Hemoglobin 27.7 pg (26-32); Mean Corpuscular Hgb Concent. 31.1 g/dL (32-36); Mean Platelet Volume 11.3 fL (7.5-11.0); Monocyte (Absolute #) 0.27 x10^3/uL (0.0-1.3); Monocytes % 3.8 % (0.0-12.0); Neutrophil % 79.5 % (36.0-66.0); Platelet Count 283 x10^3/uL (150-450); Red Blood Count 5.27 x10^6/uL (4.1-5.4); Red Cell Distribution Width 13.6 % (11.5-14.0); White Blood Count 7.2 x10^3/uL (4.0-10.5)
[2023-04-09 23:00] LABS: ALKALINE PHOSPHATASE 148 U/L (38-126); ANION GAP 13.3 MEQ/L (5-15); BLOOD UREA NITROGEN 19 mg/dL (7-17); CHLORIDE 96 mmol/L (98-107); Calcium 8.8 mg/dL (8.4-10.2); Carbon Dioxide 33 mmol/L (22-30); Creatinine 1 0.49 mg/dL (0.52-1.04); EST GLOMERULAR FILTRATION RATE > 60.0 ML/MIN; Glucose 194 mg/dL (74-106); NT PRO BNPII 184 pg/mL (<300); Potassium 4.2 mmol/L (3.5-5.1); SGOT/AST 33 U/L (14-36); SGPT/ALT 37 U/L (0-35); SODIUM 138 mmol/L (137-145); Total Protein 8.2 g/dL (6.3-8.2)
[2023-04-09] MEDS ORDERED: Zithromax 500 MG/ 250 ML NaCl Premix 500 MG/250 ML IVPB IV STA (23:23)
[2023-04-09] MEDS ORDERED: ROCEPHIN 2 Gm-D5w 50ML BAG** 2 G/50 ML IVPB IV STA (23:23)
[2023-04-09] MEDS ORDERED: ROCEPHIN 2 Gm-D5w 50ML BAG** 2 G/50 ML IVPB IV ONE (23:25)
[2023-04-09] MEDS ORDERED: Zithromax 500 MG/ 250 ML NaCl Premix 500 MG/250 ML IVPB IV ONE (23:25)
--- NOTE | 2023-04-10 01:24 | XRAY ---
CLINICAL HISTORY:Shortness of breath; COMPARISON:CT dated 10/10/2021; TECHNIQUES:Contiguous, multislice, non-enhanced CT scan of the chest in the axial plane in mediastinal and lung windows with multiplanar reconstructions was performed; FINDINGS: Fibro atelectatic changes seen in the right upper and both lower lobes. Subpleural bullae seen in right apical region. Reduced left lung volume. Opacification seen in the left lower lobe. Mild to moderate right pleural effusion with subsegmental atelectasis. Bronchiectatic changes seen in the left lower lobe. Mild posterior pleural thickening in left lung base. No enlarged hilar or mediastinal lymphadenopathy. Few small calcified mediastinal lymph nodes seen. Subcentimeter precarinal lymph node measuring about 7 mm. Chest wall has no cystic or solid masses. Normal cardiac size. Main pulmonary artery measures about 31 mm. Multilevel spondylodegenerative changes in the visualized spine. Internal metallic Nicholas's rods with screws fixation seen along the dorsal spine. No acute osseous abnormalities or suspicious bony lesions. Past fracture lines of the ribs on the right hemithorax. Visualized sections of the upper abdomen revealed no related abnormalities. IMPRESSION: Fibro atelectatic changes seen in the right upper and both lower lung lobes. Subpleural bullae in right apical region. Reduced left lung volume. Opacification seen in the left lower lobe representing consolidative changes. Bronchiectatic changes seen in the left lower lobe, probably post infectious changes. Mild to moderate right pleural effusion with subsegmental atelectasis. Stable findings when compared with prior study. Rest of the findings as detailed above. Electronically Signed by: Deepti Mera MD. (04/10/2023 00:08:10 [employer] GR[employer]ER)
[2023-04-10] MEDS ORDERED: Zofran 4 MG/2 ML VIAL IV PRN (03:25)
[2023-04-10] MEDS ORDERED: TYLENOL 325 MG PO PRN (03:25)
[2023-04-10] MEDS ORDERED: DUONEB 0.5-3 MG/3 ml Neb IH SCH (03:25)
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
[2023-04-10] MEDS ORDERED: PIPERACILLIN/TAZOBACTAM IV ONE (05:07)
[2023-04-10] MEDS ORDERED: solu-MEDROL ONE (05:07)
[2023-04-10] MEDS ORDERED: Sterile H2O 10 ml IJ ONE (05:07)
[2023-04-10] MEDS ORDERED: Sodium Chloride 100ML MINI-BAG PLUS 100 ML IV ONE (05:08)
[2023-04-10] MEDS: PIPERACILLIN/TAZOBACTAM 3.375 GM in Sodium Chloride 100ML MINI-BAG PLUS 100 ML IV SCH ×4 (05:28→18:16)
[2023-04-10] MEDS: solu-MEDROL 60 MG, Sterile H2O 10 ml 2 ML IV SCH ×8 (05:28→18:17)
[2023-04-10 06:17] LABS: Absolute Neutrophil Ct (ANC) 5.86 x10^3/uL (1.4-6.9); BASOPHIL % 0.1 % (0.0-0.4); Basophil (Absolute #) 0.01 x10^3/uL (0-0.4); Eosinophil (Absolute #) 0 x10^3/uL (0-0.5); Hematocrit 48.1 % (35-47); Hemoglobin 14.6 g/dL (12.0-16.0); IMMATURE GRAN # 0.04 x10^3u/L (0.00-0.03); IMMATURE GRAN % 0.6 % (0.00-0.4); Lymphocyte (Absolute #) 0.77 x10^3/uL (1.0-4.6); Lymphocytes % 11.4 % (24.0-44.0); Mean Cell Volume 90.1 fL (78-100); Mean Corpuscular Hemoglobin 27.3 pg (26-32); Mean Corpuscular Hgb Concent. 30.4 g/dL (32-36); Mean Platelet Volume 10.9 fL (7.5-11.0); Monocyte (Absolute #) 0.05 x10^3/uL (0.0-1.3); Monocytes % 0.7 % (0.0-12.0); Neutrophil % 87.2 % (36.0-66.0); Platelet Count 283 x10^3/uL (150-450); Red Blood Count 5.34 x10^6/uL (4.1-5.4); Red Cell Distribution Width 13.6 % (11.5-14.0); White Blood Count 6.7 x10^3/uL (4.0-10.5)
[2023-04-10 06:57] LABS: ALBUMIN 4.3 g/dL (3.5-5.0); ALKALINE PHOSPHATASE 158 U/L (38-126); ANION GAP 17.5 MEQ/L (5-15); BLOOD UREA NITROGEN 19 mg/dL (7-17); CHLORIDE 96 mmol/L (98-107); Calcium 8.8 mg/dL (8.4-10.2); Carbon Dioxide 30 mmol/L (22-30); Creatinine 1 0.51 mg/dL (0.52-1.04); EST GLOMERULAR FILTRATION RATE > 60.0 ML/MIN; Glucose 256 mg/dL (74-106); Potassium 3.7 mmol/L (3.5-5.1); SGOT/AST 24 U/L (14-36); SGPT/ALT 35 U/L (0-35); SODIUM 140 mmol/L (137-145); Total Protein 8.4 g/dL (6.3-8.2)
[2023-04-10] MEDS ORDERED: DUONEB 0.5-3 MG/3 ml Neb IH ONE (07:02)
[2023-04-10] MEDS: DUONEB 0.5-3 MG/3 ml Neb IH SCH ×5 (07:22→23:38)
--- NOTE | 2023-04-10 08:53 | XRAY ---
Indication: Short of breath. Comparison: October 10, 2021 Portable chest again demonstrates mild left base pleural parenchymal opacity. Right lung remains clear. Heart borderline enlarged. Bony thorax intact again with osteopenia, mild degenerative changes, and partially visualized cervical thoracic fusion hardware. See same-day CT chest exam.
[2023-04-10 09:24] LABS: INR 1.05 (0.8-3.0); PROTIME 11.4 SECONDS (9.4-12.5); PTT 31.9 SECONDS (25.1-36.5)
[2023-04-10] MEDS ORDERED: NON-FORMULARY ITEM (Duloxetine Hcl [Cymbalta] 60 MG Capsule.Dr) PO SCH (10:00)
[2023-04-10] MEDS ORDERED: ROCEPHIN 2 Gm-D5w 50ML BAG** 2 G/50 ML IVPB IV SCH (10:00)
[2023-04-10] MEDS ORDERED: NON-FORMULARY ITEM (Levocetirizine Dihydrochloride [Levocetirizine Dihydrochloride] 5 MG T PO SCH (10:00)
[2023-04-10] MEDS ORDERED: LIDOCAINE TP SCH (10:00)
[2023-04-10] MEDS: Glucophage XR 500 MG PO SCH ×2 (10:56→22:07)
[2023-04-10] MEDS: Cymbalta 30 MG Capsule PO SCH ×2 (10:56→22:07)
[2023-04-10] MEDS: PROTONIX 40 MG IV IV SCH (10:56)
[2023-04-10] MEDS: Lasix 40 MG PO SCH (10:57)
[2023-04-10] MEDS: Neurontin PO SCH ×4 (10:57→22:07)
[2023-04-10] MEDS: CLARITIN 10 MG PO SCH (10:57)
[2023-04-10] MEDS: Lopressor 25MG Tab PO SCH ×2 (10:57→22:07)
[2023-04-10] MEDS: Lidoderm Patch 5% TP SCH (11:02)
[2023-04-10] MEDS: HUMALOG SQ PRN ×4 (11:10→22:37)
[2023-04-10] MEDS: ENOXAPARIN SODIUM SQ SCH (11:15)
--- NOTE | 2023-04-10 12:19 | XRAY ---
Indication: Status post right thoracentesis. Comparison: One day earlier. Portable chest obtained in expiration negative for pneumothorax. Grossly stable borderline cardiomegaly, left base pleural parenchymal opacity, osteopenia, mild bony degenerative changes, partially visualized spinal fusion hardware, and old right 5 rib fracture. No new cardiopulmonary abnormalities.
--- NOTE | 2023-04-10 12:20 | TM.IN ---
Tele-Medicine Incident Note - Incident Note Tel-Medicine Incident Note: 04/10/23 1217 Seen during rounds. Thoracentesis ordered and completed; awaiting results. Clinically improving with decreased dyspnea. Will continue to monitor clinical course on current regimen.
[2023-04-10] MEDS: AMITRIPTYLINE 25 MG TABLET PO SCH (22:07)
[2023-04-10] MEDS: Zithromax 500 MG/ 250 ML NaCl Premix 500 MG/250 ML IVPB IV SCH (22:16)
[2023-04-11] MEDS: PIPERACILLIN/TAZOBACTAM 3.375 GM in Sodium Chloride 100ML MINI-BAG PLUS 100 ML IV SCH ×4 (00:06→18:29)
[2023-04-11] MEDS: solu-MEDROL 60 MG, Sterile H2O 10 ml 2 ML IV SCH ×8 (00:09→18:29)
[2023-04-11] MEDS: DUONEB 0.5-3 MG/3 ml Neb IH SCH ×6 (03:27→23:50)
[2023-04-11 05:42] LABS: Hematocrit 43.3 % (35-47); Hemoglobin 13.1 g/dL (12.0-16.0); Mean Cell Volume 89.5 fL (78-100); Mean Corpuscular Hemoglobin 27.1 pg (26-32); Mean Corpuscular Hgb Concent. 30.3 g/dL (32-36); Mean Platelet Volume 11.3 fL (7.5-11.0); Platelet Count 264 x10^3/uL (150-450); Red Blood Count 4.84 x10^6/uL (4.1-5.4); Red Cell Distribution Width 13.7 % (11.5-14.0); White Blood Count 5.8 x10^3/uL (4.0-10.5)
[2023-04-11 05:57] LABS: ANION GAP 13.9 MEQ/L (5-15); BLOOD UREA NITROGEN 24 mg/dL (7-17); CHLORIDE 99 mmol/L (98-107); Calcium 8.6 mg/dL (8.4-10.2); Carbon Dioxide 31 mmol/L (22-30); Creatinine 1 0.64 mg/dL (0.52-1.04); EST GLOMERULAR FILTRATION RATE > 60.0 ML/MIN; Glucose 354 mg/dL (74-106); SODIUM 141 mmol/L (137-145)
[2023-04-11] MEDS: Glucophage XR 500 MG PO SCH ×2 (08:35→22:30)
[2023-04-11] MEDS: Lasix 40 MG PO SCH (08:36)
[2023-04-11] MEDS: Neurontin PO SCH ×4 (08:36→22:30)
[2023-04-11] MEDS: CLARITIN 10 MG PO SCH (08:36)
[2023-04-11] MEDS: Cymbalta 30 MG Capsule PO SCH ×2 (08:36→22:31)
[2023-04-11] MEDS: Lopressor 25MG Tab PO SCH ×2 (08:37→22:30)
[2023-04-11] MEDS: PROTONIX 40 MG IV IV SCH (08:39)
[2023-04-11] MEDS: HUMALOG SQ PRN ×3 (08:43→22:29)
[2023-04-11] MEDS ORDERED: PHARMACY DOSING REQUIRED: VANCOMYCIN IV STA (09:06)
--- NOTE | 2023-04-11 10:03 | PCM.NOTE ---
Date and Time: 04/11/23956 Subjective Assessment: Dyspnea and cough improved. Tolerated thoracentesis. The patient was seen and examined via telemedicine. The entirety of this encounter was performed via telemedicine. The patient consented to this telemedicine encounter. 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 Skin Exam: normal color Wound Assessment: Skin/Wound Assessment Wound/Incision Assessment Start: 04/10/23 04:43 Text: Status: Active Freq: Q6H Protocol: Document 04/11/23 08:00 [facility] (Rec: 04/11/23 09:37 [facility] [id number]) Wound Photo Photo Taken Yes Eye Exam: PERRL, EOMI, eyes nml inspection Ears, Nose, Throat Exam: normal ENT inspection Neck Exam: normal inspection, non-tender, supple, full range of motion Respiratory Exam: rhonchi Cardiovascular Exam: regular rate/rhythm, normal heart sounds Gastrointestinal/Abdomen Exam: soft, normal bowel sounds Extremity Exam: normal inspection, normal range of motion Back Exam: normal range of motion OBJECTIVE DATA Vital Signs: Vital Signs - 24 hr Temp Pulse Resp BP Pulse Ox 04/11/23 07:43 96.6 F 78 18 143/68 94 L 04/11/23 07:05 78 18 94 L 04/11/23 05:00 99 F 98 H 20 162/70 93 L 04/11/23 03:28 75 18 96 04/11/23 00:30 98.6 F 84 15 119/56 93 L 04/11/23 00:00 98.6 F 84 18 145/65 94 L 04/10/23 23:38 84 18 94 L 04/10/23 19:49 98.6 F 94 H 20 145/65 93 L 04/10/23 19:20 87 18 93 L 04/10/23 16:00 97.7 F 82 16 121/57 92 L 04/10/23 14:38 94 H 16 94 L 04/10/23 11:12 98.2 F 94 H 16 181/84 94 L 04/10/23 10:48 94 H 16 94 L Pain Assessment - Last Documented Pain Intensity 5 Intake and Output: Intake & Output 04/08/23 04/09/23 04/10/23 04/11/23 11:59 11:59 11:59 11:59 Intake Total 480 1880 Output Total 150 1375 Balance 330 505 Weight 98.3 kg 98.3 kg Lab Results: Lab Results-Last 24 Hours 04/10/23 04/10/23 04/10/23 Range/Units 12:09 16:27 22:33 WBC (4.0-10.5) x10^3/uL RBC (4.1-5.4) x10^6/uL Hgb (12.0-16.0) g/dL Hct (35-47) % MCV (78-100) fL MCH (26-32) pg MCHC (32-36) g/dL RDW (11.5-14.0) % Plt Count (150-450) x10^3/uL MPV (7.5-11.0) fL Sodium (137-145) mmol/L Potassium (3.5-5.1) mmol/L Chloride (98-107) mmol/L Carbon Dioxide (22-30) mmol/L Anion Gap (5-15) MEQ/L BUN (7-17) mg/dL Creatinine (0.52-1.04) mg/dL Estimated GFR ML/MIN Glucose (74-106) mg/dL POC Glucometer 329 H 265 H 458 H (74 to 106) mg/dL Calcium (8.4-10.2) mg/dL 04/11/23 04/11/23 04/11/23 Range/Units 05:10 05:10 07:12 WBC 5.8 (4.0-10.5) x10^3/uL RBC 4.84 (4.1-5.4) x10^6/uL Hgb 13.1 (12.0-16.0) g/dL Hct 43.3 (35-47) % MCV 89.5 (78-100) fL MCH 27.1 (26-32) pg MCHC 30.3 L (32-36) g/dL RDW 13.7 (11.5-14.0) % Plt Count 264 (150-450) x10^3/uL MPV 11.3 H (7.5-11.0) fL Sodium 141 (137-145) mmol/L Potassium 4.0 (3.5-5.1) mmol/L Chloride 99 (98-107) mmol/L Carbon Dioxide 31 H (22-30) mmol/L Anion Gap 13.9 (5-15) MEQ/L BUN 24 H (7-17) mg/dL Creatinine 0.64 (0.52-1.04) mg/dL Estimated GFR > 60.0 ML/MIN Glucose 354 H (74-106) mg/dL POC Glucometer 320 H (74 to 106) mg/dL Calcium 8.6 (8.4-10.2) mg/dL Radiology Exams: Radiology Procedures Category Date Time Status CHEST 1 VIEW (PORTABLE) Stat Exams 04/09/23 21:45 Completed CHEST 1 VIEW (PORTABLE) Urgent Exams 04/10/23 11:41 Completed THORACENTESIS [US] Routine Exams 04/10/23 09:16 Taken Multi-Disciplinary Progress Notes: Multi-Disciplinary Progress Notes 04/10/23 12:09 Case Management Note by Keerthi Madrid SPOKE WITH NEY AT [facility] - TO REPORT THAT PT IS IN OBS BED - PT CURRENTLY HAS A HOME HEALTH AIDE 4 HOURS PER DAY/7 DAYS PER WEEK - SHE HAS A HOMEMAKER 31 HOURS PER MONTH - AND AN ATTENDANT 93 HOURS PER MONTH. WILL CALL [facility] ON DISCHARGE - [phone]. Initialized on 04/10/23 12:09 - END OF NOTE 04/10/23 12:05 Case Management Note by Keerthi Madrid SPOKE WITH KATHARINE AT [facility] [place] - PT HAS ORDER FOR 24/7 OXYGEN - HAS PORTABILITY - BUT KATHARINE REPORTS THAT SHE RARELY ORDERS PORTABLE TANKS - ORDER IS FOR 2L PER MT 24/7 CONTINUOUS - WILL NEED TO CALL [facility] [place] ON DISCHARGE FOR DELIVERY OF PORTABLE TANKS - [phone] - [place] OFFICE Initialized on 04/10/23 12:05 - END OF NOTE Assessment/Plan (1) Pneumonia Current Visit: Yes Status: Acute Assessment & Plan: Continue IV antibiotics. Awaiting pleural effusion laboratory analysis results. Code(s): J18.9 - PNEUMONIA, UNSPECIFIED ORGANISM
[2023-04-11] MEDS: VANCOMYCIN 1 GRAM/200 ML BAG 1 GM/200 ML PIGGYBACK IV SCH ×2 (10:42→22:46)
[2023-04-11] MEDS: Lidoderm Patch 5% TP SCH (13:28)
[2023-04-11] MEDS: ENOXAPARIN SODIUM SQ SCH (13:28)
[2023-04-11 16:57] LABS: Protein, Body Fluid 4.4 g/dL (.)
[2023-04-11] MEDS: AMITRIPTYLINE 25 MG TABLET PO SCH (22:30)
[2023-04-11] MEDS: Zithromax 500 MG/ 250 ML NaCl Premix 500 MG/250 ML IVPB IV SCH (22:32)
[2023-04-12] MEDS: solu-MEDROL 60 MG, Sterile H2O 10 ml 2 ML IV SCH ×10 (01:06→23:29)
[2023-04-12] MEDS: PIPERACILLIN/TAZOBACTAM 3.375 GM in Sodium Chloride 100ML MINI-BAG PLUS 100 ML IV SCH ×4 (01:07→18:11)
[2023-04-12] MEDS: DUONEB 0.5-3 MG/3 ml Neb IH SCH ×6 (03:38→22:46)
[2023-04-12 06:30] LABS: ANION GAP 12.8 MEQ/L (5-15); BLOOD UREA NITROGEN 26 mg/dL (7-17); CHLORIDE 98 mmol/L (98-107); Calcium 8.8 mg/dL (8.4-10.2); Carbon Dioxide 31 mmol/L (22-30); Creatinine 1 0.79 mg/dL (0.52-1.04); EST GLOMERULAR FILTRATION RATE > 60.0 ML/MIN; Glucose 351 mg/dL (74-106); Potassium 3.3 mmol/L (3.5-5.1); SODIUM 139 mmol/L (137-145)
[2023-04-12] MEDS: HUMALOG SQ PRN ×4 (08:33→22:04)
[2023-04-12] MEDS: Neurontin PO SCH ×4 (08:42→22:05)
[2023-04-12] MEDS: CLARITIN 10 MG PO SCH (10:12)
[2023-04-12] MEDS: Glucophage XR 500 MG PO SCH ×2 (10:12→22:04)
[2023-04-12] MEDS: PROTONIX 40 MG IV IV SCH (10:12)
[2023-04-12] MEDS: Lasix 40 MG PO SCH (10:12)
[2023-04-12] MEDS: Cymbalta 30 MG Capsule PO SCH ×2 (10:12→22:05)
[2023-04-12] MEDS: Lopressor 25MG Tab PO SCH ×2 (10:12→22:04)
[2023-04-12] MEDS: ENOXAPARIN SODIUM SQ SCH (10:14)
[2023-04-12] MEDS: VANCOMYCIN 1 GRAM/200 ML BAG 1 GM/200 ML PIGGYBACK IV SCH ×2 (10:29→23:08)
--- NOTE | 2023-04-12 12:26 | PCM.NOTE ---
Date and Time: 04/12/23 1222 Cough and dyspnea is persistent (not worse, though). Has not had a cough productive of sputum. The patient was seen and examined via telemedicine. The entirety of this encounter was performed via telemedicine. The patient consented to this telemedicine encounter. 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, normal mood/affect, nml cerebellar function Skin Exam: normal color Wound Assessment: Skin/Wound Assessment Wound/Incision Assessment Start: 04/10/23 04:43 Text: Status: Active Freq: Q6H Protocol: Document 04/12/23 08:00 [facility] (Rec: 04/12/23 08:38 [facility] [id number]) Wound Photo Photo Taken Yes Eye Exam: PERRL, EOMI Ears, Nose, Throat Exam: normal ENT inspection Neck Exam: normal inspection, non-tender, supple, full range of motion Respiratory Exam: rhonchi Cardiovascular Exam: regular rate/rhythm, normal heart sounds Gastrointestinal/Abdomen Exam: soft, normal bowel sounds Extremity Exam: normal inspection, normal range of motion Back Exam: normal range of motion OBJECTIVE DATA Vital Signs: Vital Signs - 24 hr Temp Pulse Resp BP Pulse Ox 04/12/23 12:00 96.8 F 84 17 182/81 92 L 04/12/23 07:39 97 F 83 146/65 04/12/23 07:15 20 93 L 04/12/23 07:12 81 20 93 L 04/12/23 04:00 98.0 F 87 18 139/69 92 L 04/12/23 03:42 80 20 93 L 04/11/23 23:50 89 20 96 04/11/23 23:44 97.7 F 93 H 20 145/75 93 L 04/11/23 20:00 97.7 F 82 20 149/67 92 L 04/11/23 19:34 83 20 92 L 04/11/23 15:15 77 20 95 06/17/23 15:00 97.8 F 87 18 128/59 94 L Pain Assessment - Last Documented Pain Intensity 7 Pain Scale Used 0-10 Pain Scale Intake and Output: Intake & Output 04/10/23 04/11/23 04/12/23 04/13/23 11:59 11:59 11:59 11:59 Intake Total 480 1880 3075 Output Total 150 1375 2850 Balance 330 505 225 Weight 98.3 kg 98.3 kg Lab Results: Lab Results-Last 24 Hours 04/10/23 04/11/23 04/11/23 Range/Units 11:45 12:24 16:25 Sodium (137-145) mmol/L Potassium (3.5-5.1) mmol/L Chloride (98-107) mmol/L Carbon Dioxide (22-30) mmol/L Anion Gap (5-15) MEQ/L BUN (7-17) mg/dL Creatinine (0.52-1.04) mg/dL Estimated GFR ML/MIN Glucose (74-106) mg/dL POC Glucometer 309 H 336 H (74 to 106) mg/dL Calcium (8.4-10.2) mg/dL Fluid pH Pending Fluid Glucose 293 (.) mg/dL Fluid Total Protein 4.4 (.) g/dL 04/11/23 04/12/23 04/12/23 Range/Units 21:20 05:30 07:36 Sodium 139 (137-145) mmol/L Potassium 3.3 L (3.5-5.1) mmol/L Chloride 98 (98-107) mmol/L Carbon Dioxide 31 H (22-30) mmol/L Anion Gap 12.8 (5-15) MEQ/L BUN 26 H (7-17) mg/dL Creatinine 0.79 (0.52-1.04) mg/dL Estimated GFR > 60.0 ML/MIN Glucose 351 H (74-106) mg/dL POC Glucometer 401 H 319 H (74 to 106) mg/dL Calcium 8.8 (8.4-10.2) mg/dL Fluid pH Fluid Glucose (.) mg/dL Fluid Total Protein (.) g/dL 04/12/23 Range/Units 12:09 Sodium (137-145) mmol/L Potassium (3.5-5.1) mmol/L Chloride (98-107) mmol/L Carbon Dioxide (22-30) mmol/L Anion Gap (5-15) MEQ/L BUN (7-17) mg/dL Creatinine (0.52-1.04) mg/dL Estimated GFR ML/MIN Glucose (74-106) mg/dL POC Glucometer 323 H (74 to 106) mg/dL Calcium (8.4-10.2) mg/dL Fluid pH Fluid Glucose (.) mg/dL Fluid Total Protein (.) g/dL Radiology Exams: Radiology Procedures Category Date Time Status CHEST 1 VIEW (PORTABLE) Urgent Exams 04/10/23 11:41 Completed Assessment/Plan (1) Pneumonia Current Visit: Yes Status: Acute Assessment & Plan: Continue IV antibiotics. Follow up culture finalization (and surveillance culture); possible skin contaminant. Added Mucinex to regimen. Underwent thoracentesis for pleural effusion. Awaiting further effusion lab analysis. Code(s): J18.9 - PNEUMONIA, UNSPECIFIED ORGANISM
[2023-04-12] MEDS: Mucinex 600MG ER Tabs PO SCH ×2 (12:29→22:04)
[2023-04-12] MEDS: Klor Con PO SCH ×4 (12:29→18:08)
[2023-04-12] MEDS: Lidoderm Patch 5% TP SCH (13:33)
[2023-04-12] MEDS ORDERED: TROUGH DRUG LEVELS IJ ONE (21:30)
[2023-04-12] MEDS: AMITRIPTYLINE 25 MG TABLET PO SCH (22:04)
[2023-04-12] MEDS: Zithromax 500 MG/ 250 ML NaCl Premix 500 MG/250 ML IVPB IV SCH (22:05)
[2023-04-13] MEDS: PIPERACILLIN/TAZOBACTAM 3.375 GM in Sodium Chloride 100ML MINI-BAG PLUS 100 ML IV SCH ×6 (01:14→23:45)
[2023-04-13] MEDS: DUONEB 0.5-3 MG/3 ml Neb IH SCH ×6 (03:34→22:54)
[2023-04-13] MEDS: solu-MEDROL 60 MG, Sterile H2O 10 ml 2 ML IV SCH ×8 (05:47→23:45)
[2023-04-13 07:00] LABS: BASOPHIL % 0.4 % (0.0-0.4); Basophil (Absolute #) 0.03 x10^3/uL (0-0.4); Eosinophil (Absolute #) 0 x10^3/uL (0-0.5); Hemoglobin 13.5 g/dL (12.0-16.0); IMMATURE GRAN # 0.14 x10^3u/L (0.00-0.03); IMMATURE GRAN % 2.1 % (0.00-0.4); Lymphocyte (Absolute #) 0.37 x10^3/uL (1.0-4.6); Lymphocytes % 5.5 % (24.0-44.0); Mean Cell Volume 87.6 fL (78-100); Mean Corpuscular Hemoglobin 27.5 pg (26-32); Mean Corpuscular Hgb Concent. 31.4 g/dL (32-36); Mean Platelet Volume 11.5 fL (7.5-11.0); Monocyte (Absolute #) 0.27 x10^3/uL (0.0-1.3); Platelet Count 244 x10^3/uL (150-450); Red Blood Count 4.91 x10^6/uL (4.1-5.4); Red Cell Distribution Width 13.6 % (11.5-14.0); White Blood Count 6.7 x10^3/uL (4.0-10.5)
[2023-04-13 07:35] LABS: Slide Review 1 YES
[2023-04-13 08:18] LABS: ANION GAP 15.7 MEQ/L (5-15); BLOOD UREA NITROGEN 29 mg/dL (7-17); CHLORIDE 98 mmol/L (98-107); Calcium 8.1 mg/dL (8.4-10.2); Carbon Dioxide 29 mmol/L (22-30); Creatinine 1 0.62 mg/dL (0.52-1.04); EST GLOMERULAR FILTRATION RATE > 60.0 ML/MIN; Glucose 382 mg/dL (74-106); MAGNESIUM 1.9 mg/dL (1.6-2.3); Potassium 3.4 mmol/L (3.5-5.1); SODIUM 140 mmol/L (137-145)
[2023-04-13] MEDS: ENOXAPARIN SODIUM SQ SCH (08:41)
[2023-04-13] MEDS: Cymbalta 30 MG Capsule PO SCH ×2 (08:42→21:13)
[2023-04-13] MEDS: VANCOMYCIN 1 GRAM/200 ML BAG 1 GM/200 ML PIGGYBACK IV SCH ×2 (08:42→21:22)
[2023-04-13] MEDS: Neurontin PO SCH ×4 (08:43→21:14)
[2023-04-13] MEDS: Mucinex 600MG ER Tabs PO SCH ×2 (08:43→21:13)
[2023-04-13] MEDS: Lasix 40 MG PO SCH (08:44)
[2023-04-13] MEDS: CLARITIN 10 MG PO SCH (08:44)
[2023-04-13] MEDS: Lopressor 25MG Tab PO SCH ×2 (08:44→21:13)
[2023-04-13] MEDS: Glucophage XR 500 MG PO SCH ×2 (08:44→21:13)
[2023-04-13] MEDS: HUMALOG SQ PRN ×3 (08:45→22:29)
[2023-04-13] MEDS: PROTONIX 40 MG IV IV SCH (08:45)
[2023-04-13] MEDS: Lidoderm Patch 5% TP SCH (08:46)
--- NOTE | 2023-04-13 09:00 | XRAY ---
Indication: Right pleural fluid. Procedure performed bedside. Informed consent obtained. Initial ultrasound of the right back performed for localization. Largest pocket lower chest. The right back was prepped and draped in sterile fashion. 1% lidocaine plain was used for local anesthesia. Tiny skin incision made. 5 [employer] paracentesis needle/catheter was then percutaneously inserted. Once fluid was aspirating, the outer catheter was then advanced with the inner needle removed. Approximately 50 cc clear tea-colored was collected and sent to laboratory for analysis as ordered by the clinician. Catheter removed. Hemostasis achieved using digital pressure over the puncture site. Band-Aid applied over the puncture site. Postthoracentesis chest radiograph pending. Impression: Technically successful ultrasound guided right thoracentesis for diagnostic purpose. No immediate complications or blood loss.
[2023-04-13] MEDS ORDERED: Xylocaine-Mpf 2% 5 Ml Vial ONE (14:18)
[2023-04-13] MEDS: Mucomyst 200 MG/ML IH SCH ×2 (15:12→22:54)
[2023-04-13] MEDS: AMITRIPTYLINE 25 MG TABLET PO SCH (21:13)
[2023-04-13] MEDS: Zithromax 500 MG/ 250 ML NaCl Premix 500 MG/250 ML IVPB IV SCH (21:13)
--- NOTE | 2023-04-14 00:45 | PCM.NOTE ---
Date and Time: 04/13/23 1637 Subjective Assessment: No acute events overnight. She is worried, noted that she still feels congested on the right side, unable to mobilize thick secretions. She notes that previously required NT suction to get all of sputum removed. She also notes a history of prior left pleurodesis, but it appears was having large L-sided tr ansudative effusion at the time. No fevers, chills. Eating well. She remains on 2L oxygen; notes that at home, she is normally on room air, although will use 2L oxygen at night as needed. - Review of Systems Respiratory: Cough, Short Of Breath All Other Systems: Reviewed and Negative Objective Exam General Appearance: no apparent distress Neurologic Exam: alert, oriented x 3 Wound Assessment: Skin/Wound Assessment Wound/Incision Assessment Start: 04/10/23 04:43 Text: Status: Active Freq: Q6H Protocol: Document 04/13/23 20:00 WW (Rec: 04/13/23 21:28 WW [id number]) Wound Photo Photo Taken Yes Respiratory Exam: other (coarse breath sounds bilaterally, on 2L oxygen.) OBJECTIVE DATA Vital Signs: Vital Signs - 24 hr Temp Pulse Resp BP Pulse Ox 04/14/23 00:00 98.7 F 87 20 136/63 90 L 04/13/23 22:55 83 18 93 L 04/13/23 20:00 97.3 F 84 18 134/91 92 L 04/13/23 19:16 79 20 93 L 04/13/23 16:00 97.1 F 76 20 94/57 92 L 04/13/23 15:48 86 16 92 L 04/13/23 12:00 96.9 F 86 16 134/85 86 L 04/13/23 10:49 82 18 94 L 04/13/23 07:13 96.6 F 83 16 186/84 94 L 04/13/23 06:38 74 18 91 L 04/13/23 04:00 97.3 F 78 20 156/78 93 L 04/13/23 03:34 71 18 97 Pain Assessment - Last Documented Pain Intensity 5 Pain Scale Used 0-10 Pain Scale Intake and Output: Intake & Output 04/11/23 04/12/23 04/13/23 04/14/23 11:59 11:59 11:59 11:59 Intake Total 1880 2855 2991 600 Output Total 8926 4787 9839 2000 Balance 505 128 -9812 -1400 Weight 98.3 kg 98.3 kg Lab Results: Lab Results-Last 24 Hours 04/10/23 04/13/23 04/13/23 Range/Units 11:45 06:48 06:48 WBC 6.7 (4.0-10.5) x10^3/uL RBC 4.91 (4.1-5.4) x10^6/uL Hgb 13.5 (12.0-16.0) g/dL Hct 43.0 (35-47) % MCV 87.6 (78-100) fL MCH 27.5 (26-32) pg MCHC 31.4 L (32-36) g/dL RDW 13.6 (11.5-14.0) % Plt Count 244 (150-450) x10^3/uL MPV 11.5 H (7.5-11.0) fL Gran % 88.0 H (36.0-66.0) % Immature Gran % (Auto) 2.1 H (0.00-0.4) % Nucleat RBC Rel Count 0.0 (0.00-0.1) % Eos # (Auto) 0 (0-0.5) x10^3/uL Immature Gran # (Auto) 0.14 H (0.00-0.03) x10^3u/L Absolute Lymphs (auto) 0.37 L (1.0-4.6) x10^3/uL Absolute Monos (auto) 0.27 (0.0-1.3) x10^3/uL Absolute Nucleated RBC 0.00 (0.00-0.01) x10^3u/L Lymphocytes % 5.5 L (24.0-44.0) % Monocytes % 4.0 (0.0-12.0) % Eosinophils % 0.0 (0.00-5.0) % Basophils % 0.4 (0.0-0.4) % Absolute Granulocytes 5.90 (1.4-6.9) x10^3/uL Basophils # 0.03 (0-0.4) x10^3/uL Sodium 140 (137-145) mmol/L Potassium 3.4 L (3.5-5.1) mmol/L Chloride 98 (98-107) mmol/L Carbon Dioxide 29 (22-30) mmol/L Anion Gap 15.7 H (5-15) MEQ/L BUN 29 H (7-17) mg/dL Creatinine 0.62 (0.52-1.04) mg/dL Estimated GFR > 60.0 ML/MIN Glucose 382 H (74-106) mg/dL POC Glucometer (74 to 106) mg/dL Calcium 8.1 L (8.4-10.2) mg/dL Magnesium 1.9 (1.6-2.3) mg/dL Fluid LDH 100 (.) IU/L Slides for Path Review YES 04/13/23 04/13/23 04/13/23 Range/Units 06:57 11:56 16:22 WBC (4.0-10.5) x10^3/uL RBC (4.1-5.4) x10^6/uL Hgb (12.0-16.0) g/dL Hct (35-47) % MCV (78-100) fL MCH (26-32) pg MCHC (32-36) g/dL RDW (11.5-14.0) % Plt Count (150-450) x10^3/uL MPV (7.5-11.0) fL Gran % (36.0-66.0) % Immature Gran % (Auto) (0.00-0.4) % Nucleat RBC Rel Count (0.00-0.1) % Eos # (Auto) (0-0.5) x10^3/uL Immature Gran # (Auto) (0.00-0.03) x10^3u/L Absolute Lymphs (auto) (1.0-4.6) x10^3/uL Absolute Monos (auto) (0.0-1.3) x10^3/uL Absolute Nucleated RBC (0.00-0.01) x10^3u/L Lymphocytes % (24.0-44.0) % Monocytes % (0.0-12.0) % Eosinophils % (0.00-5.0) % Basophils % (0.0-0.4) % Absolute Granulocytes (1.4-6.9) x10^3/uL Basophils # (0-0.4) x10^3/uL Sodium (137-145) mmol/L Potassium (3.5-5.1) mmol/L Chloride (98-107) mmol/L Carbon Dioxide (22-30) mmol/L Anion Gap (5-15) MEQ/L BUN (7-17) mg/dL Creatinine (0.52-1.04) mg/dL Estimated GFR ML/MIN Glucose (74-106) mg/dL POC Glucometer 295 H 360 H 396 H (74 to 106) mg/dL Calcium (8.4-10.2) mg/dL Magnesium (1.6-2.3) mg/dL Fluid LDH (.) IU/L Slides for Path Review 04/13/23 Range/Units 21:50 WBC (4.0-10.5) x10^3/uL RBC (4.1-5.4) x10^6/uL Hgb (12.0-16.0) g/dL Hct (35-47) % MCV (78-100) fL MCH (26-32) pg MCHC (32-36) g/dL RDW (11.5-14.0) % Plt Count (150-450) x10^3/uL MPV (7.5-11.0) fL Gran % (36.0-66.0) % Immature Gran % (Auto) (0.00-0.4) % Nucleat RBC Rel Count (0.00-0.1) % Eos # (Auto) (0-0.5) x10^3/uL Immature Gran # (Auto) (0.00-0.03) x10^3u/L Absolute Lymphs (auto) (1.0-4.6) x10^3/uL Absolute Monos (auto) (0.0-1.3) x10^3/uL Absolute Nucleated RBC (0.00-0.01) x10^3u/L Lymphocytes % (24.0-44.0) % Monocytes % (0.0-12.0) % Eosinophils % (0.00-5.0) % Basophils % (0.0-0.4) % Absolute Granulocytes (1.4-6.9) x10^3/uL Basophils # (0-0.4) x10^3/uL Sodium (137-145) mmol/L Potassium (3.5-5.1) mmol/L Chloride (98-107) mmol/L Carbon Dioxide (22-30) mmol/L Anion Gap (5-15) MEQ/L BUN (7-17) mg/dL Creatinine (0.52-1.04) mg/dL Estimated GFR ML/MIN Glucose (74-106) mg/dL POC Glucometer 344 H (74 to 106) mg/dL Calcium (8.4-10.2) mg/dL Magnesium (1.6-2.3) mg/dL Fluid LDH (.) IU/L Slides for Path Review Multi-Disciplinary Progress Notes: Multi-Disciplinary Progress Notes 04/13/23 11:30 (created 04/13/23 13:59) Case Management Note by Jessica Lemon PATIENT CONTINUES TO DENY ANY NEW NEEDS. SHE REPORTS SHE HAS ALL OF THE MEDICAL EQUIPMENT NEEDED AT HOME. SHE LIVES WITH FAMILY WHO CAN ASSIST HER AND ALSO HAS [facility] THAT COME IN AND ASSIST DAILY. SHE PLANS TO RETURN HOME TO HER PLF. SHE ALREADY HAVE HOME OXYGEN WELL. Initialized on 04/13/23 13:59 - END OF NOTE Assessment/Plan (1) Pneumonia Current Visit: Yes Status: Acute Assessment & Plan: 72 y/o F with h/o DM2, here with pneumonia with parapneumonic effusion. ## Pneumonia - multifocal pneumonia, with small right pleural effusion drained on 04/10. Chemistry is consistent with exudate (high protein, high LDH). Pending cytology, gram stain, and culture still. Having difficulty mobilizing thick secretions. - start flutter therapy - if Mucomyst available, will start - [id number] DuoNebs - decrease SoluMedrol to 60 daily - wean oxygen to maintain SpO2 91-94% - follow up cytology, gram stain, culture of pleural fluid - continue Vancomycin, Zosyn, Azithromycin ## DM2 - poorly controlled, due to steroids. - continue Metformin 500 BID - increase lispro to moderate dose sliding scale # Neuropathy - continue Cymbalta 60 BID, Elavil 25, Gabapentin 800 QID Code Status: full code PPx: lovenox Entirety of encounter took place via telemedicine, to which patient consented. Code(s): J18.9 - PNEUMONIA, UNSPECIFIED ORGANISM (2) Pleural effusion Current Visit: No Status: Acute Code(s): J90 - PLEURAL EFFUSION, NOT ELSEWHERE CLASSIFIED
[2023-04-14] MEDS: DUONEB 0.5-3 MG/3 ml Neb IH SCH ×6 (03:16→23:19)
[2023-04-14 05:07] LABS: Hematocrit 42.9 % (35-47); Hemoglobin 13.5 g/dL (12.0-16.0); Mean Cell Volume 86.3 fL (78-100); Mean Corpuscular Hemoglobin 27.2 pg (26-32); Mean Corpuscular Hgb Concent. 31.5 g/dL (32-36); Mean Platelet Volume 11.5 fL (7.5-11.0); Platelet Count 236 x10^3/uL (150-450); Red Blood Count 4.97 x10^6/uL (4.1-5.4); Red Cell Distribution Width 13.6 % (11.5-14.0); White Blood Count 7.6 x10^3/uL (4.0-10.5)
[2023-04-14 05:15] LABS: ANION GAP 12.8 MEQ/L (5-15); BLOOD UREA NITROGEN 31 mg/dL (7-17); CHLORIDE 95 mmol/L (98-107); Calcium 8.1 mg/dL (8.4-10.2); Carbon Dioxide 32 mmol/L (22-30); Creatinine 1 0.61 mg/dL (0.52-1.04); EST GLOMERULAR FILTRATION RATE > 60.0 ML/MIN; Glucose 399 mg/dL (74-106); Potassium 3.4 mmol/L (3.5-5.1); SODIUM 137 mmol/L (137-145)
[2023-04-14] MEDS: PIPERACILLIN/TAZOBACTAM 3.375 GM in Sodium Chloride 100ML MINI-BAG PLUS 100 ML IV SCH ×4 (05:50→23:30)
[2023-04-14] MEDS: Mucomyst 200 MG/ML IH SCH ×3 (06:59→23:19)
[2023-04-14] MEDS: CLARITIN 10 MG PO SCH (09:12)
[2023-04-14] MEDS: ENOXAPARIN SODIUM SQ SCH (09:13)
[2023-04-14] MEDS: Neurontin PO SCH ×4 (09:13→21:36)
[2023-04-14] MEDS: Lopressor 25MG Tab PO SCH ×2 (09:13→21:35)
[2023-04-14] MEDS: Mucinex 600MG ER Tabs PO SCH ×2 (09:13→21:35)
[2023-04-14] MEDS: Lasix 40 MG PO SCH (09:13)
[2023-04-14] MEDS: Cymbalta 30 MG Capsule PO SCH ×2 (09:13→21:35)
[2023-04-14] MEDS: Glucophage XR 500 MG PO SCH ×2 (09:13→21:35)
[2023-04-14] MEDS: Lidoderm Patch 5% TP SCH (09:14)
[2023-04-14] MEDS: PROTONIX 40 MG IV IV SCH (09:15)
[2023-04-14] MEDS: solu-MEDROL 60 MG, Sterile H2O 10 ml 2 ML IV SCH ×2 (09:15)
[2023-04-14] MEDS: VANCOMYCIN 1 GRAM/200 ML BAG 1 GM/200 ML PIGGYBACK IV SCH ×2 (09:16→22:35)
[2023-04-14] MEDS: HUMALOG SQ PRN ×3 (09:16→22:40)
--- NOTE | 2023-04-14 14:01 | PCM.NOTE ---
Date and Time: 04/14/23 1354 Subjective Assessment: No acute events overnight. She feels like her breathing is a little easier. Not coughing up much, but able to move air more easily. Remains on her baseline 2L oxygen. - Review of Systems Constitutional: No Fever, No Chills, No Night Sweats Eyes: No Symptoms Ears, Nose, & Throat: No Symptoms Respiratory: Short Of Breath, Wheezing, No Cough Cardiac: No Chest Pain, No Edema Abdominal/Gastrointestinal: No Abdominal Pain, No Nausea, No Vomiting Genitourinary Symptoms: No Symptoms All Other Systems: Reviewed and Negative Objective Exam General Appearance: no apparent distress Neurologic Exam: alert, oriented x 3, normal mood/affect Skin Exam: normal color, No rash Wound Assessment: Skin/Wound Assessment Wound/Incision Assessment Start: 04/10/23 04:43 Text: Status: Active Freq: Q6H Protocol: Document 04/14/23 08:00 RF (Rec: 04/14/23 10:34 RF [id number]) Co-Sign 04/14/23 08:00 RB Wound Photo Photo Taken Yes Eye Exam: eyes nml inspection Respiratory Exam: wheezing, other (markedly decreased rhonchi today, with some mild end-expiratory wheezing. Overall moving air better. On 2L oxygen by [place].), No accessory muscle use Cardiovascular Exam: regular rate/rhythm, normal heart sounds, No murmur Gastrointestinal/Abdomen Exam: soft, No tenderness, No distention OBJECTIVE DATA Vital Signs: Vital Signs - 24 hr Temp Pulse Resp BP Pulse Ox 04/14/23 11:46 97.8 F 73 17 186/72 91 L 04/14/23 10:41 80 18 91 L 04/14/23 07:13 98.2 F 81 18 190/84 91 L 04/14/23 07:09 80 18 93 L 04/14/23 03:35 97.3 F 84 20 155/96 91 L 04/14/23 03:16 82 20 88 L 04/14/23 00:00 98.7 F 87 20 136/63 90 L 04/13/23 22:55 83 18 93 L 04/13/23 20:00 97.3 F 84 18 134/91 92 L 04/13/23 19:16 79 20 93 L 04/13/23 16:00 97.1 F 76 20 94/57 92 L 04/13/23 15:48 86 16 92 L Pain Assessment - Last Documented Pain Intensity 5 Pain Scale Used 0-10 Pain Scale Intake and Output: Intake & Output 04/12/23 04/13/23 04/14/23 04/15/23 11:59 11:59 11:59 11:59 Intake Total 3075 2991 1200 240 Output Total 2850 4350 3450 Balance 225 -1359 -2250 240 Weight 98.3 kg Lab Results: Lab Results-Last 24 Hours 04/13/23 04/13/23 04/14/23 Range/Units 16:22 21:50 04:45 WBC 7.6 (4.0-10.5) x10^3/uL RBC 4.97 (4.1-5.4) x10^6/uL Hgb 13.5 (12.0-16.0) g/dL Hct 42.9 (35-47) % MCV 86.3 (78-100) fL MCH 27.2 (26-32) pg MCHC 31.5 L (32-36) g/dL RDW 13.6 (11.5-14.0) % Plt Count 236 (150-450) x10^3/uL MPV 11.5 H (7.5-11.0) fL Sodium (137-145) mmol/L Potassium (3.5-5.1) mmol/L Chloride (98-107) mmol/L Carbon Dioxide (22-30) mmol/L Anion Gap (5-15) MEQ/L BUN (7-17) mg/dL Creatinine (0.52-1.04) mg/dL Estimated GFR ML/MIN Glucose (74-106) mg/dL POC Glucometer 396 H 344 H (74 to 106) mg/dL Calcium (8.4-10.2) mg/dL 04/14/23 04/14/23 04/14/23 Range/Units 04:45 06:52 11:37 WBC (4.0-10.5) x10^3/uL RBC (4.1-5.4) x10^6/uL Hgb (12.0-16.0) g/dL Hct (35-47) % MCV (78-100) fL MCH (26-32) pg MCHC (32-36) g/dL RDW (11.5-14.0) % Plt Count (150-450) x10^3/uL MPV (7.5-11.0) fL Sodium 137 (137-145) mmol/L Potassium 3.4 L (3.5-5.1) mmol/L Chloride 95 L (98-107) mmol/L Carbon Dioxide 32 H (22-30) mmol/L Anion Gap 12.8 (5-15) MEQ/L BUN 31 H (7-17) mg/dL Creatinine 0.61 (0.52-1.04) mg/dL Estimated GFR > 60.0 ML/MIN Glucose 399 H (74-106) mg/dL POC Glucometer 363 H 277 H (74 to 106) mg/dL Calcium 8.1 L (8.4-10.2) mg/dL Blood Cx 04/09 - 10/29 bottles with coagulase-negative staph. Remaining all negative (final report) Blood Cx 04/11 - no growth to date Pleural fluid culture 04/10 - no growth at 24 hours Multi-Disciplinary Progress Notes: Multi-Disciplinary Progress Notes 04/14/23 10:09 Case Management Note by Jessica Lemon NO CHANGE IN DC PLANS AT THIS TIME Initialized on 04/14/23 10:09 - END OF NOTE Assessment/Plan (1) Pneumonia Current Visit: Yes Status: Acute Assessment & Plan: 72 y/o F with h/o DM2, chronic hypoxic repiratory failure, GERD, bullous emphysema, HTN, and T4/5 paraplegia, here with pneumonia with parapneumonic effusion. ## Pneumonia - multifocal pneumonia, with small right pleural effusion drained on 04/10. Chemistry is consistent with exudate (high protein, high LDH). Gram stain negative, and cultures no growth to date. Improving breathing on Mucomyst and flutter valve. - continue flutter valve therapy - continue Mucomyst - continue q4h DuoNeb - continue SoluMedrol 60 daily - wean oxygen to maintain SpO2 91-94% - follow up cytology, gram stain, culture of pleural fluid - continue Vancomycin, Zosyn, Azithromycin ## DM2 - poorly controlled, due to steroids. Glc levels still in high 200s to 300s - continue Metformin 500 BID - add Lantus 10 units qHS - continue moderate dose sliding scale insulin ## Chronic hypoxic respiratory failure - on her baseline 2L oxygen. - continue oxygen, maintain SpO2 91-94% ## COPD - continue SoluMedrol 60 dailiy - continue q4h DuoNeb ## Neuropathy - continue Cymbalta 60 BID, Elavil 25, Gabapentin 800 QID ## HTN - BP controlled - continue metopolol 25 BID Code Status: full code PPx: lovenox Entirety of encounter took place via telemedicine, to which patient consented. Code(s): J18.9 - PNEUMONIA, UNSPECIFIED ORGANISM (2) Pleural effusion Current Visit: No Status: Acute Code(s): J90 - PLEURAL EFFUSION, NOT ELSEWHERE CLASSIFIED
[2023-04-14 15:28] LABS: pH,Body Fluid 7.4 (Not Estab.)
[2023-04-14] MEDS: Zithromax 500 MG/ 250 ML NaCl Premix 500 MG/250 ML IVPB IV SCH (21:30)
[2023-04-14] MEDS ORDERED: TROUGH DRUG LEVELS IJ ONE (21:30)
[2023-04-14] MEDS: AMITRIPTYLINE 25 MG TABLET PO SCH (21:35)
[2023-04-14] MEDS ORDERED: Lantus Insulin SQ SCH (22:00)
[2023-04-15] MEDS: DUONEB 0.5-3 MG/3 ml Neb IH SCH ×6 (03:22→23:28)
[2023-04-15 05:20] LABS: Hematocrit 43.4 % (35-47); Hemoglobin 13.6 g/dL (12.0-16.0); Mean Cell Volume 87.1 fL (78-100); Mean Corpuscular Hemoglobin 27.3 pg (26-32); Mean Corpuscular Hgb Concent. 31.3 g/dL (32-36); Mean Platelet Volume 11.6 fL (7.5-11.0); Platelet Count 264 x10^3/uL (150-450); Red Blood Count 4.98 x10^6/uL (4.1-5.4); Red Cell Distribution Width 13.8 % (11.5-14.0); White Blood Count 11.5 x10^3/uL (4.0-10.5)
[2023-04-15] MEDS: PIPERACILLIN/TAZOBACTAM 3.375 GM in Sodium Chloride 100ML MINI-BAG PLUS 100 ML IV SCH ×4 (05:30→23:55)
[2023-04-15 05:34] LABS: ANION GAP 14.2 MEQ/L (5-15); BLOOD UREA NITROGEN 32 mg/dL (7-17); CHLORIDE 95 mmol/L (98-107); Calcium 8.1 mg/dL (8.4-10.2); Carbon Dioxide 33 mmol/L (22-30); Creatinine 1 0.68 mg/dL (0.52-1.04); EST GLOMERULAR FILTRATION RATE > 60.0 ML/MIN; Glucose 163 mg/dL (74-106); Potassium 3.3 mmol/L (3.5-5.1); SODIUM 139 mmol/L (137-145)
[2023-04-15] MEDS: Mucomyst 200 MG/ML IH SCH ×3 (07:14→23:28)
[2023-04-15] MEDS: HUMALOG SQ PRN ×4 (08:28→22:32)
[2023-04-15] MEDS: Lidoderm Patch 5% TP SCH (11:05)
[2023-04-15] MEDS: ENOXAPARIN SODIUM SQ SCH (11:06)
[2023-04-15] MEDS: PROTONIX 40 MG IV IV SCH (11:06)
[2023-04-15] MEDS: solu-MEDROL 60 MG, Sterile H2O 10 ml 2 ML IV SCH ×2 (11:06)
[2023-04-15] MEDS: Mucinex 600MG ER Tabs PO SCH ×2 (11:06→21:15)
[2023-04-15] MEDS: CLARITIN 10 MG PO SCH (11:07)
[2023-04-15] MEDS: Lopressor 25MG Tab PO SCH ×2 (11:07→21:14)
[2023-04-15] MEDS: Cymbalta 30 MG Capsule PO SCH ×2 (11:07→21:14)
[2023-04-15] MEDS: Neurontin PO SCH ×4 (11:08→21:15)
[2023-04-15] MEDS: Glucophage XR 500 MG PO SCH ×2 (11:08→21:14)
[2023-04-15] MEDS: Lasix 40 MG PO SCH (11:08)
[2023-04-15] MEDS: VANCOMYCIN 1 GRAM/200 ML BAG 1 GM/200 ML PIGGYBACK IV SCH ×2 (11:08→21:14)
[2023-04-15] MEDS ORDERED: Lantus Insulin SQ SCH (17:32)
--- NOTE | 2023-04-15 17:32 | PCM.NOTE ---
Date and Time: 04/15/23 172 Subjective Assessment: No acute events overnight. Patient said that she feels essentially unchanged, but has a good appetite. However, she notes that she is able to have better air movement, and is starting to finally mobilize some of her secretions. Denies chest pain, nausea, or fevers. - Review of Systems All Other Systems: Reviewed and Negative Objective Exam General Appearance: no apparent distress Neurologic Exam: alert, oriented x 3, normal mood/affect Skin Exam: No rash Wound Assessment: Skin/Wound Assessment Wound/Incision Assessment Start: 04/10/23 04:43 Text: Status: Active Freq: Q6H Protocol: Document 04/15/23 14:00 (Rec: 04/15/23 15:17 [id number]) Wound/Incision Assessment Left Heel Wound Assessment Shift Assessment Wound Type Pressure Ulcer Wound Stage Stage I Drainage Amount None Comment heel protectors in place Eye Exam: eyes nml inspection Neck Exam: normal inspection Respiratory Exam: other (Mild bilateral coarse breath sounds, but no wheezing today, and overall moving air better.) Cardiovascular Exam: regular rate/rhythm, normal heart sounds, No murmur, No edema Gastrointestinal/Abdomen Exam: soft, No tenderness, No distention OBJECTIVE DATA Vital Signs: Vital Signs - 24 hr Temp Pulse Resp BP Pulse Ox 04/15/23 16:40 74 18 93 L 04/15/23 16:00 99.0 F 71 18 136/60 93 L 04/15/23 12:11 77 16 93 L 04/15/23 12:00 97.5 F 87 18 96/51 92 L 04/15/23 07:41 67 16 95 04/15/23 07:18 97.9 F 69 18 143/67 93 L 04/15/23 04:00 97.8 F 73 20 147/82 95 04/15/23 03:23 69 18 94 L 04/15/23 00:00 97.7 F 66 18 142/65 93 L 04/14/23 23:19 69 18 92 L 04/14/23 20:00 98.6 F 72 20 165/73 93 L 04/14/23 19:03 72 18 92 L Pain Assessment - Last Documented Pain Intensity 3 Pain Scale Used 0-10 Pain Scale Intake and Output: Intake & Output 04/13/23 04/14/23 04/15/23 04/16/23 11:59 11:59 11:59 11:59 Intake Total 2995 1200 2116 047 Output Total 2726 8732 3226 9691 Balance -4741 -1634 -983 -595 Weight 98.3 kg 98.3 kg 98.3 kg Lab Results: Lab Results-Last 24 Hours 04/14/23 04/14/23 04/15/23 Range/Units 21:24 22:11 04:20 WBC 11.5 H (4.0-10.5) x10^3/uL RBC 4.98 (4.1-5.4) x10^6/uL Hgb 13.6 (12.0-16.0) g/dL Hct 43.4 (35-47) % MCV 87.1 (78-100) fL MCH 27.3 (26-32) pg MCHC 31.3 L (32-36) g/dL RDW 13.8 (11.5-14.0) % Plt Count 264 (150-450) x10^3/uL MPV 11.6 H (7.5-11.0) fL Sodium (137-145) mmol/L Potassium (3.5-5.1) mmol/L Chloride (98-107) mmol/L Carbon Dioxide (22-30) mmol/L Anion Gap (5-15) MEQ/L BUN (7-17) mg/dL Creatinine (0.52-1.04) mg/dL Estimated GFR ML/MIN Glucose (74-106) mg/dL POC Glucometer 329 H (74 to 106) mg/dL Calcium (8.4-10.2) mg/dL Vancomycin Trough 16.50 (10-20) ug/mL 04/15/23 04/15/23 04/15/23 Range/Units 04:20 07:10 11:18 WBC (4.0-10.5) x10^3/uL RBC (4.1-5.4) x10^6/uL Hgb (12.0-16.0) g/dL Hct (35-47) % MCV (78-100) fL MCH (26-32) pg MCHC (32-36) g/dL RDW (11.5-14.0) % Plt Count (150-450) x10^3/uL MPV (7.5-11.0) fL Sodium 139 (137-145) mmol/L Potassium 3.3 L (3.5-5.1) mmol/L Chloride 95 L (98-107) mmol/L Carbon Dioxide 33 H (22-30) mmol/L Anion Gap 14.2 (5-15) MEQ/L BUN 32 H (7-17) mg/dL Creatinine 0.68 (0.52-1.04) mg/dL Estimated GFR > 60.0 ML/MIN Glucose 163 H (74-106) mg/dL POC Glucometer 155 H 185 H (74 to 106) mg/dL Calcium 8.1 L (8.4-10.2) mg/dL Vancomycin Trough (10-20) ug/mL 04/15/23 Range/Units 15:55 WBC (4.0-10.5) x10^3/uL RBC (4.1-5.4) x10^6/uL Hgb (12.0-16.0) g/dL Hct (35-47) % MCV (78-100) fL MCH (26-32) pg MCHC (32-36) g/dL RDW (11.5-14.0) % Plt Count (150-450) x10^3/uL MPV (7.5-11.0) fL Sodium (137-145) mmol/L Potassium (3.5-5.1) mmol/L Chloride (98-107) mmol/L Carbon Dioxide (22-30) mmol/L Anion Gap (5-15) MEQ/L BUN (7-17) mg/dL Creatinine (0.52-1.04) mg/dL Estimated GFR ML/MIN Glucose (74-106) mg/dL POC Glucometer 313 H (74 to 106) mg/dL Calcium (8.4-10.2) mg/dL Vancomycin Trough (10-20) ug/mL Pleural fluid pH 7.4 Multi-Disciplinary Progress Notes: Multi-Disciplinary Progress Notes 04/15/23 13:56 Case Management Note by Jessica Lemon S/W PATIENT- SHE CONTINUES TO DENY ANY NEW NEEDS AT TIME OF DC. [facility] WITH [facility] CALLED FOR AN UPDATE. PATIENT PLANS TO DC HOME WITH FAMILY AND ASSISTANCE FROM [facility]. PATIENT ALREADY SET UP WITH 24/7 OXYGEN AT HOME. PATIENT WILL NEED AMBULANCE TRANSPORT HOME SHE IS UNABLE TO TRANSFER TO AND FROM CHAIR WITHOUT LIFT AND HAS NO POWER CHAIR HERE Initialized on 04/15/23 13:56 - END OF NOTE Assessment/Plan (1) Pneumonia Current Visit: Yes Status: Acute Assessment & Plan: 72 y/o F with h/o DM2, chronic hypoxic repiratory failure, GERD, bullous emphysema, HTN, and T4/5 paraplegia, here with pneumonia with parapneumonic effusion. ## Pneumonia - multifocal pneumonia, with small right pleural effusion drained on 04/10. Effusion consistent with exudate. Gram stain negative, culture negative to date, and pH is only 7, so unlikely to have empyema. Breathing better, and started to mobilize her secretions with Mucomyst and flutter valve. Continue flutter valve therapy Continue Mucomyst Continue q4h DuoNeb Continue SoluMedrol 60 daily Wean oxygen to maintain SpO2 91-94% Continue Vancomycin, Zosyn, Azithromycin, day 5 ## DM2 - poorly controlled, due to steroids. Glucose levels labile, between 155 and 313. Continue Metformin 500 BID Increase Lantus to 15 units QHS Continue moderate dose sliding scale insulin ## Chronic hypoxic respiratory failure - on her baseline 2L oxygen. Continue oxygen, maintain SpO2 91-94% ## COPD improving air movement and oxygenation. Continue SoluMedrol 60 daily Continue q4h DuoNeb ## Neuropathy Continue Cymbalta 60 BID, Elavil 25, Gabapentin 800 QID ## HTN - BP controlled Continue metopolol 25 BID Code Status: full code PPx: lovenox Dispo: Possibly ready for going home tomorrow if continues to have improvement in her breathing. Entirety of encounter took place via telemedicine, to which patient consented. Code(s): J18.9 - PNEUMONIA, UNSPECIFIED ORGANISM (2) Pleural effusion Current Visit: No Status: Acute Code(s): J90 - PLEURAL EFFUSION, NOT ELSEWHERE CLASSIFIED
[2023-04-15] MEDS: AMITRIPTYLINE 25 MG TABLET PO SCH (21:14)
[2023-04-15] MEDS: Zithromax 500 MG/ 250 ML NaCl Premix 500 MG/250 ML IVPB IV SCH (21:22)
[2023-04-16] MEDS: DUONEB 0.5-3 MG/3 ml Neb IH SCH ×3 (03:00→11:03)
[2023-04-16] MEDS: PIPERACILLIN/TAZOBACTAM 3.375 GM in Sodium Chloride 100ML MINI-BAG PLUS 100 ML IV SCH (05:28)
[2023-04-16 05:56] LABS: ANION GAP 11.3 MEQ/L (5-15); BLOOD UREA NITROGEN 32 mg/dL (7-17); CHLORIDE 96 mmol/L (98-107); Calcium 7.8 mg/dL (8.4-10.2); Carbon Dioxide 34 mmol/L (22-30); Creatinine 1 0.55 mg/dL (0.52-1.04); EST GLOMERULAR FILTRATION RATE > 60.0 ML/MIN; Glucose 161 mg/dL (74-106); Potassium 3.5 mmol/L (3.5-5.1); SODIUM 137 mmol/L (137-145)
[2023-04-16 05:59] LABS: Hematocrit 41.6 % (35-47); Mean Cell Volume 86.7 fL (78-100); Mean Corpuscular Hemoglobin 27.1 pg (26-32); Mean Corpuscular Hgb Concent. 31.3 g/dL (32-36); Mean Platelet Volume 11.7 fL (7.5-11.0); Platelet Count 263 x10^3/uL (150-450); Red Cell Distribution Width 14.1 % (11.5-14.0); White Blood Count 8.9 x10^3/uL (4.0-10.5)
[2023-04-16] MEDS: Neurontin PO SCH ×2 (10:08→13:09)
[2023-04-16] MEDS: Lidoderm Patch 5% TP SCH (10:08)
[2023-04-16] MEDS: ENOXAPARIN SODIUM SQ SCH (10:08)
[2023-04-16] MEDS: Cymbalta 30 MG Capsule PO SCH (10:09)
[2023-04-16] MEDS: PROTONIX 40 MG IV IV SCH (10:09)
[2023-04-16] MEDS: solu-MEDROL 60 MG, Sterile H2O 10 ml 2 ML IV SCH ×2 (10:09)
[2023-04-16] MEDS: Mucinex 600MG ER Tabs PO SCH (10:09)
[2023-04-16] MEDS: Glucophage XR 500 MG PO SCH (10:09)
[2023-04-16] MEDS: CLARITIN 10 MG PO SCH (10:09)
[2023-04-16] MEDS: Lopressor 25MG Tab PO SCH (10:10)
[2023-04-16] MEDS: Lasix 40 MG PO SCH (10:10)
[2023-04-16] MEDS: VANCOMYCIN 1 GRAM/200 ML BAG 1 GM/200 ML PIGGYBACK IV SCH (10:10)
--- NOTE | 2023-04-16 11:03 | PCM.DS ---
Discharge Summary Date of Admission: 04/11/23 09:57 Date of Discharge: 04/16/2023 Admitting Physician: DANNIE WINTERS MD Primary Care Provider: RAINER HODGES MD Allergies Allergies latex Allergy (Verified 04/09/23 21:35) Hospital Summary - Hospital Course Hospital Course: 72-year-old man with a history of type 2 diabetes, chronic hypoxic respiratory failure, GERD, bolus of eczema, T4/5 paraplegia, hypertension, who admitted with 4 days of productive cough and dyspnea, with increase of her oxygen requirements from her 2 L at baseline to 4 L. X-ray showed fibrocavitary disease with a moderate right-sided pleural effusion with associated pneumonia. She was started on empiric Vanco, Zosyn, and azithromycin, and her parapneumonic effusion was dr nel by thoracentesis. Pleural fluid chemistries were consistent with an exudate, but culture was negative and pH of 7.4, with no evidence of empyema. She initially had difficulty with mobilizing her secretions. She was started on Mucomyst and DuoNebs, as well as using flutter valve, which helped her to mobilize her secretions. She was weaned back to her home 2 L oxygen, with improvement in her air movement. She was put on IV Solu-Medrol, leading to hyperglycemia requiring nighttime Lantus. However, she will be maintained on her home metformin on discharge. Overall had improved, with her breathing essentially back to her baseline. She will be discharged to complete a course of p.o. antibiotics and a few more days of p.o. steroids. Entirety of encounter took place via telemedicine. Patient consented to telemedicine. Greater than 30 minutes managing discharge. - Vitals & Intake/Output Vital Signs: Vital Signs Temperature 98.0 F 04/16/23 07:19 Pulse Rate 78 04/16/23 07:19 Respiratory Rate 22 04/16/23 07:19 Blood Pressure 130/60 04/16/23 07:19 O2 Sat by Pulse Oximetry 93 L 04/16/23 07:19 Intake & Output: Intake & Output 04/13/23 04/14/23 04/15/23 04/16/23 11:59 11:59 11:59 11:59 Intake Total 2991 1200 3617 3403 Output Total 4350 3450 4600 3925 Balance -1359 -2250 -983 -522 Weight 98.3 kg 98.3 kg 97.6 kg - Lab Result Diagrams: 04/16/23 04:28 04/16/23 04:28 Lab Results-Last 24 Hrs: Lab Results-Last 24 Hours 04/15/23 04/15/23 04/15/23 Range/Units 11:18 15:55 21:46 WBC (4.0-10.5) x10^3/uL RBC (4.1-5.4) x10^6/uL Hgb (12.0-16.0) g/dL Hct (35-47) % MCV (78-100) fL MCH (26-32) pg MCHC (32-36) g/dL RDW (11.5-14.0) % Plt Count (150-450) x10^3/uL MPV (7.5-11.0) fL Sodium (137-145) mmol/L Potassium (3.5-5.1) mmol/L Chloride (98-107) mmol/L Carbon Dioxide (22-30) mmol/L Anion Gap (5-15) MEQ/L BUN (7-17) mg/dL Creatinine (0.52-1.04) mg/dL Estimated GFR ML/MIN Glucose (74-106) mg/dL POC Glucometer 185 H 313 H 291 H (74 to 106) mg/dL Calcium (8.4-10.2) mg/dL 04/16/23 04/16/23 04/16/23 Range/Units 04:28 04:28 07:05 WBC 8.9 (4.0-10.5) x10^3/uL RBC 4.80 (4.1-5.4) x10^6/uL Hgb 13.0 (12.0-16.0) g/dL Hct 41.6 (35-47) % MCV 86.7 (78-100) fL MCH 27.1 (26-32) pg MCHC 31.3 L (32-36) g/dL RDW 14.1 H (11.5-14.0) % Plt Count 263 (150-450) x10^3/uL MPV 11.7 H (7.5-11.0) fL Sodium 137 (137-145) mmol/L Potassium 3.5 (3.5-5.1) mmol/L Chloride 96 L (98-107) mmol/L Carbon Dioxide 34 H (22-30) mmol/L Anion Gap 11.3 (5-15) MEQ/L BUN 32 H (7-17) mg/dL Creatinine 0.55 (0.52-1.04) mg/dL Estimated GFR > 60.0 ML/MIN Glucose 161 H (74-106) mg/dL POC Glucometer 135 H (74 to 106) mg/dL Calcium 7.8 L (8.4-10.2) mg/dL Micro Results-Entire Visit: Microbiology 04/11/23 09:39 Blood Culture - Final Blood NO GROWTH 04/11/23 09:39 Blood Culture - Final Blood NO GROWTH 04/09/23 22:40 Blood Culture Gram Stain - Final Blood Blood Culture - Final Coagulase Negative Staph. Possible Contaminant. Clinical judgement required. No further workup performed. 04/10/23 11:45 Gram Stain - Final Pleural Fluid Gram Stain Result 1 - Final Gram Stain Result 2 - Final Sterile Body Fluid Culture - Preliminary Body Fluid Culture Result 1 - Preliminary 04/09/23 22:40 Blood Culture - Final Blood Accuchecks Date 04/16/23 Date 04/15/23 Date 04/15/23 Time 07:19 Blood culture 04/09: 1 out of 4 coag negative staph, likely contaminant. Blood culture 04/11: Negative Pleural fluid culture 04/10: Negative at 72 hours. pH 7.4. - Procedures and Test Procedures and Tests throughout Hospitalization: Therapy Orders & Screens 04/09/23 21:56 Respiratory Therapy Assessment DAILY Comment: 04/10/23 03:25 Oxygen Nasal Cannula 2 lpm Comment: 04/10/23 07:00 Flutter Therapy UD Comment: Diagnosis: Acute on chronic hypoxic respiratory failure Discharge Exam General Appearance: no apparent distress Neurologic Exam: alert, oriented x 3, other (Absent motor and sensation below the waist) Eye Exam: eyes nml inspection Respiratory Exam: other (Mild coarse rhonchi, improved admission. No wheezing, good air movement. On her home 2 L oxygen by nasal cannula) Cardiovascular Exam: regular rate/rhythm, normal heart sounds, No edema Gastrointestinal/Abdomen Exam: soft, No tenderness, No distention Wound Assessment: Skin/Wound Assessment Wound/Incision Assessment Start: 06/16/23 04:43 Text: Status: Active Freq: Q6H Protocol: Document 04/16/23 08:00 (Rec: 04/16/23 09:06 [id number]) Wound/Incision Assessment Left Heel Wound Assessment Shift Assessment Wound Type Pressure Ulcer Wound Stage Stage I Drainage Amount None Comment Bilateral heel protectors in use. Final Diagnosis/Problem List - Final Discharge Diagnosis/Problem (1) Pneumonia Current Visit: Yes Status: Acute Code(s): J18.9 - PNEUMONIA, UNSPECIFIED ORGANISM (2) Pleural effusion Current Visit: Yes Status: Acute Code(s): J90 - PLEURAL EFFUSION, NOT ELSEWHERE CLASSIFIED Telemedicine Encounter - Telemedicine Encounter Telemedicine Encounter: The entirety of this encounter was performed via Telemedicine" - Discharge Disposition: Home, Self-Care Condition: Stable Prescriptions: New Prednisone 20 mg [Deltasone 20 mg] 40 mg PO DAILY 5 Days #10 tablet Levofloxacin [Levofloxacin 500 MG Tablet] 500 mg PO DAILY #5 tablet Continue Duloxetine HCl [Cymbalta] 60 mg PO BID Metformin HCl Xr 500 mg [Glucophage XR 500 MG] 500 mg PO BID Gabapentin 800 mg PO QID Ipratropium/Albuterol Sulfate [Iprat-Albut 0.5-3(2.5) mg/3 ml] 3 ml IH Q4H Diazepam 5 mg [Valium 5 MG] 5 mg PO DAILY PRN PRN PRN Reason: Anxiety Metoprolol Tartrate 25 mg [Lopressor 25MG Tab] 25 mg PO BID PANTOPRAZOLE 40 mg Tablet [Protonix 40MG Tablet] 40 mg PO QAM Furosemide 20 mg [Lasix 20 mg] 40 mg PO DAILY Amitriptyline HCl 25 mg [Amitriptyline 25 mg Tablet] 25 mg PO HS Levocetirizine Dihydrochloride 5 mg PO DAILY Lidocaine 1 each TP DAILY Discontinued Prednisone 10 mg [Deltasone 10 mg] 10 mg PO TID #12 tablet Azithromycin 250 mg [Zithromax 250 MG TABLET] 250 mg PO ZPACK #6 tablet Additional Instructions: CALL [facility] FOR DELIVERY OF PORTABLE TANKS ON DISCHARGE. THEIR PHONE NUMBER IS [phone]. THEY WILL BRING THE EQUIPMENT YOU NEED. Follow up with: MARIANA ESCALANTE FNP [NON-STAFF PHY W/O PRIVILEGES] - 04/23/23 11:00 am (OTOLARYNGOLOGIST for Dr. Hodges)
[2023-04-16 11:05] VITALS: PULSE 73
[2023-04-16 11:45] VITALS: BP 125/52; O2SAT 94
== END 2023-04-16 13:45 | disposition home or self-care (01) | DRG 194 ==
LOC: ED 21:33 → MED SURG 04-10 03:00 → OBSVTOIN 04-11 09:57
PROVIDERS: ADMIT Internal Medicine Critical Care Medicine; ATTEND Family Medicine
DX: J18.9 Pneumonia, unspecified organism (principal); G82.20 Paraplegia, unspecified; J90 Pleural effusion, not elsewhere classified; J96.11 Chronic respiratory failure with hypoxia; J44.9 Chronic obstructive pulmonary disease, unspecified; I10 Essential (primary) hypertension; E78.5 Hyperlipidemia, unspecified; E11.9 Type 2 diabetes mellitus without complications; K21.9 Gastro-esophageal reflux disease without esophagitis; L89.621 Pressure ulcer of left heel, stage 1; Z99.81 Dependence on supplemental oxygen; Z79.899 Other long term (current) drug therapy; Z20.828 Contact with and (suspected) exposure to other viral communicable diseases
CPT/HCPCS: 32555; 36000; 36415; 71045; 71250; 80048; 80053; 80202; 82945; 82947; 83036; 83605; 83615; 83735; 83880; 83986; 84145; 84157; 84484; 85025; 85027; 85610; 85730; 87040; 87070; 87075; 87205; 93005; 93041; 94640; 94667; 94668; 94760; 96360; 96365; 96367; 96374; 99285; G0378; Q3014; J0456; J0696; J1650; J1817; J2930; A9270-GY; J3370